=== PATIENT | male | born 1945 | race Caucasian/White ===

== ENCOUNTER 2016-10-16 17:30 | Emergency (ER) | payer MEDICARE ==
[2016-10-16] MEDS ORDERED: ONDANSETRON 4 MG/2 ML VIAL IVP STA (18:19)
[2016-10-16 19:10] LABS: Basophils # (A) 0.1 k/uL (0-0.2); Basophils % (A) 1 %; CH 32.2; CHCM 34.1; Eosinophils # (A) 0.4 k/uL (0-0.7); Eosinophils % (A) 6 %; HCT 44.2 % (39.0-53.0); HDW 2.82; HGB 14.6 gm/dL (13.0-17.5); Luc # (Auto) 0.15; Luc % (Auto) 2; Lymphocytes # (A) 1.7 k/uL (1.0-4.8); Lymphocytes % (A) 24 %; MCH 31.4 pg (25.0-35.0); MCHC 33.1 g/dL (31.0-37.0); Mean Platelet Volume 6.7; Monocytes # (A) 0.4 k/uL (0-1.0); Monocytes % (A) 6 %; Neutrophils # (A) 4.3 k/uL (1.3-7.7); Neutrophils % (A) 61 %; RBC 4.65 m/uL (4.30-5.90); RDW 13.7 % (11.5-15.5)
[2016-10-16 19:20] LABS: ALT 62 U/L (21-72); AST 31 U/L (17-59); Alkaline Phosphatase 68 U/L (38-126); Amylase <30 U/L (30-110); Anion Gap 11 mmol/L; Blood Urea Nitrogen 14 mg/dL (9-20); Calcium 9.6 mg/dL (8.4-10.2); Carbon Dioxide 25 mmol/L (22-30); Chloride 105 mmol/L (98-107); Glucose 103 mg/dL (74-99); Non-African American GFR(MDRD) >60 (>60 ml/min/1.73 sqM); Potassium 4.2 mmol/L (3.5-5.1); Sodium 141 mmol/L (137-145); Total Bilirubin 0.6 mg/dL (0.2-1.3); Total Protein 6.9 g/dL (6.3-8.2)
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
--- NOTE | 2016-10-16 19:40 | CT ---
EXAMINATION TYPE: CT brain wo con DATE OF EXAM: 10/16/2016 7:35 PM COMPARISON: NONE HISTORY: Facial numbness CT DLP: 1217.1 mGycm Automated exposure control for dose reduction was used. FINDINGS: There is mucosal thickening in the right maxillary sinus. There is mild mucosal thickening in the eth moid and sphenoid sinuses. Calvarium is intact. There is cerebral cortical atrophy. There is no mass effect or midline shift. There is no sign of intracranial hemorrhage. There is sclerosis in the masto id sinuses. IMPRESSION: Cerebral atrophy. No acute intracranial abnormality. Sinusitis. Chronic bilateral mastoiditis. There is mucosal thickening in the left middle ear cavity c onsistent with otitis media..
[2016-10-16 19:52] LABS: Partial Thromboplastin Time 23.2 sec (22.0-30.0); Prothrombin Time 9.8 sec (9.0-12.0)
[2016-10-16 20:18] VITALS: BP 135/67; PULSE 94; RESP 16; TEMP 98.2
--- NOTE | 2016-10-16 20:45 | ED ---
General Adult HPI - General Chief complaint: Neuro Symptoms/Deficit Stated complaint: Rt side numb face/arm/tongue dizzy Time Seen by Provider: 10/16/16 18:12 Source: patient Mode of arrival: wheelchair Limitations: no limitations - History of Present Illness Initial comments: This 70-year-old white male presents complaining of some left facial numbness and tingling. Onset occurred at approximately 4 PM. He states that his tongue went somewhat numb as well. He had some nausea but no vomiting. He denies any problems with speech, problems with vision, problems with coordination, or any other neurologic abnormalities. A second complaint is that of having some abdominal cramping which is been present intermittently over the past 2 weeks. He has had occasional constipation and occasional diarrhea but no blood in his stools or black tarry stools. He denies any ear pain. He apparently had your tubes [facility] approximately 10 years ago [facility] the [facility]. He denies any drainage from his years. He denies any mastoid tenderness. He has chronic sinusitis. No other complaints or modifying factors. - Related Data Home Medications Medication Instructions Recorded Confirmed Dorzolamide 2% [Trusopt 2%] 1 drop LEFT EYE HS 06/22/15 06/22/15 Latanoprost Ophth [Xalatan 0.005%] 2 drop LEFT EYE BID 06/22/15 06/22/15 Simvastatin [Zocor] 20 mg PO DAILY 06/22/15 06/22/15 Thyroid Pill 1 tab PO DAILY 06/22/15 06/22/15 prednisoLONE ACETATE [Pred Mild] 2 drops RIGHT EYE DIRECTED 06/22/15 06/22/15 Previous Rx's Medication Instructions Recorded Amoxicillin 500 mg PO Q8H #30 capsule 10/16/16 Allergies Allergy/AdvReac Type Severity Reaction Status Date / Time No Known Allergies Allergy Verified 10/16/16 17:39 Review of Systems ROS Statement: Those systems with pertinent positive or pertinent negative responses have been documented in the HPI. ROS Other: All systems not noted in ROS Statement are negative. Past Medical History Past Medical History: Hyperlipidemia, Thyroid Disorder Additional Past Medical History / Comment(s): glaucoma, History of Any Multi-Drug Resistant Organisms: None Reported Additional Past Surgical History / Comment(s): eye surgery Past Psychological History: No Psychological Hx Reported Smoking Status: Never smoker Past Alcohol Use History: None Reported Past Drug Use History: None Reported General Exam - General Exam Comments Initial Comments: GENERAL: The patient is well nourished and well hydrated. VITAL SIGNS: Heart rate, blood pressure, respiratory rate reviewed as recorded in nurse's notes. EYES: Pupils are round and reactive. Extraocular movements are intact. No conjunctival / lid redness or swelling. ENT: No external evidence of injury, swelling, or ecchymosis. Airway is patent. Throat is clear. The left ear is clear with a tube identified in the left tympanic membrane. There is associated erythema behind the tympanic membrane. The right ear is occluded with wax. There is no mastoid tenderness or swelling whatsoever. NECK: Nontender. No swelling or evidence of injury. No subcutaneous emphysema. Trachea is midline. No thyroid mass. HEART: Regular rate and rhythm. Good peripheral pulses. LUNGS/CHEST: Breath sounds clear and equal bilaterally. No rales, rhonchi, or wheezes. No ecchymosis, subcutaneous emphysema, or tenderness. ABDOMEN: Abdomen soft without tenderness. No palpable masses or organomegaly. No peritoneal signs. No abdominal wall swelling or ecchymosis. EXTREMITIES: No extremity tenderness. Normal muscle tone and function. No thoracolumbar tenderness. NEUROLOGIC: There is some subjective numbness of the left face. Cranial nerve exam reveals face is symmetrical, tongue is midline, speech is clear. SKIN: No abrasions or ecchymosis is noted. No induration or masses noted. PSYCHIATRIC: Alert and oriented. Appropriate behavior and judgment. Limitations: no limitations Course Vital Signs 10/16/16 10/16/16 17:35 20:16 Temperature 97.9 F 98.2 F Pulse Rate 87 94 Respiratory 18 16 Rate Blood Pressure 142/103 135/67 O2 Sat by Pulse 98 97 Oximetry Medical Decision Making - Medical Decision Making The patient was seen and examined. All diagnostics were reviewed. The EKG shows a normal sinus rhythm at a rate of 84. No acute ST-T wave changes are identified. The patient's ME interval is 168, QRS duration is 82, and QTC intervals 423. The computed tomography scan of the brain shows evidence of some atrophy. They also suspect a left otitis media. There is some chronic bilateral mastoid changes noted. There is a degree of sinusitis. Laboratory is unremarkable. On recheck he relates that the numbness has significantly decreased to his left face. There are no other hard signs of a CVA or TIA. The exact cause of the facial numbness is not definitively determined. It is felt as though he has a right here cerumen impaction and treatment of this as discussed. Is also felt as though he has a left otitis media and will be treated for this. His abdominal pain seems likely consistent with constipation. He has had it for approximately 2 weeks. His abdominal exam is quite benign. It is felt as though he may benefit from utilizing some MiraLAX. It is felt as though he is stable for discharge and close follow-up with his primary doctor. He understands and leaves in no distress. - Lab Data Result diagrams: 10/16/16 18:50 10/16/16 18:50 Lab Results 10/16/16 10/16/16 10/16/16 Range/Units 18:50 18:50 18:50 WBC 7.0 (3.8-10.6) k/uL RBC 4.65 (4.30-5.90) m/uL Hgb 14.6 (13.0-17.5) gm/dL Hct 44.2 (39.0-53.0) % MCV 95.0 (80.0-100.0) fL MCH 31.4 (25.0-35.0) pg MCHC 33.1 (31.0-37.0) g/dL RDW 13.7 (11.5-15.5) % Plt Count 135 L (150-450) k/uL Neutrophils % 61 % Lymphocytes % 24 % Monocytes % 6 % Eosinophils % 6 % Basophils % 1 % Neutrophils # 4.3 (1.3-7.7) k/uL Lymphocytes # 1.7 (1.0-4.8) k/uL Monocytes # 0.4 (0-1.0) k/uL Eosinophils # 0.4 (0-0.7) k/uL Basophils # 0.1 (0-0.2) k/uL PT 9.8 (9.0-12.0) sec INR 1.0 (<1.1) APTT 23.2 (22.0-30.0) sec Sodium 141 (137-145) mmol/L Potassium 4.2 (3.5-5.1) mmol/L Chloride 105 (98-107) mmol/L Carbon Dioxide 25 (22-30) mmol/L Anion Gap 11 mmol/L BUN 14 (9-20) mg/dL Creatinine 0.97 (0.66-1.25) mg/dL Est GFR (MDRD) Af Amer >60 (>60 ml/min/1.73 sqM) Est GFR (MDRD) Non-Af >60 (>60 ml/min/1.73 sqM) Glucose 103 H (74-99) mg/dL Calcium 9.6 (8.4-10.2) mg/dL Total Bilirubin 0.6 (0.2-1.3) mg/dL AST 31 (17-59) U/L ALT 62 (21-72) U/L Alkaline Phosphatase 68 (38-126) U/L Total Protein 6.9 (6.3-8.2) g/dL Albumin 4.3 (3.5-5.0) g/dL Amylase <30 L (30-110) U/L Lipase 79 (23-300) U/L Disposition Clinical Impression: Left facial numbness, Left otitis media, Sinusitis, Hypertension, Abdominal pain, Constipation Disposition: HOME SELF-CARE Condition: Good Instructions: Abdominal Pain (ED), Constipation (ED), High Fiber Diet (ED), Otitis Media (ED), Sinusitis (ED), Hypertension (ED), Paresthesia (ED) Additional Instructions: Please use MiraLAX as needed for constipation. Prescriptions: Amoxicillin 500 mg PO Q8H #30 capsule Referrals: Quincy Fraga MD [Primary Care Provider] - 1-2 days Time of Disposition: 20:45
== END 2016-10-16 21:00 | disposition home or self-care (01) ==
LOC: EC 17:30
DX: R20.0 Anesthesia of skin (principal); H66.92 Otitis media, unspecified, left ear; J32.9 Chronic sinusitis, unspecified; I10 Essential (primary) hypertension; K59.00 Constipation, unspecified; H61.21 Impacted cerumen, right ear; E07.9 Disorder of thyroid, unspecified; E78.5 Hyperlipidemia, unspecified; H40.9 Unspecified glaucoma; Z79.899 Other long term (current) drug therapy
CPT/HCPCS: 36415; 93005; 80053; 82150; 83690; 85025; 85610; 85730; 74022; 70450; 99284; 96374; J2405

== ENCOUNTER 2016-11-14 07:26 | Day surgery (SDC) | payer MEDICARE, OTHER ==
[2016-11-12 16:08] VITALS: BMI 39.1
[~2016-11-14 07:26] MED LIST: MOXIFLOXACIN HCL 0.5% DROPS 3 ML BTL OP ONE; TETRACAINE 0.5% OPHTH (PF) DROPS 4 ML BTL OP ONE; TIMOLOL 0.5% OPHTH SOLN (PF) 0.2 ML DROPERETTE OP ONE
[2016-11-14 07:47] VITALS: RESP 16; TEMP 97.7
[2016-11-14] MEDS ORDERED: LIDOCAINE 1% 20 ML VIAL (10MG/ML) FOR IV START INTRADERMA ONE (07:57)
[2016-11-14] MEDS ORDERED: LACTATED RINGERS 1,000 ML IV ONE (07:58)
[2016-11-14] MEDS ORDERED: fentaNYL (PF) 50 MCG/ML 2 ML AMP ONE (09:17)
[2016-11-14] MEDS ORDERED: MIDAZOLAM 2 MG/2 ML VIAL ONE (09:17)
[2016-11-14] MEDS ORDERED: BUPIVACAIN-EPI 0.5%-1:200,000 30 ML VIAL SQ ONE ×2 (09:33)
[2016-11-14] MEDS ORDERED: BALANCED SALT IRRIG SOLN COMB2 15 ML IRRIG.SOLN IRRIGATION ONE (09:33)
[2016-11-14] MEDS ORDERED: FLUORESCEIN STRIPS 1 MG STRIP RIGHT EYE ONE (09:52)
[2016-11-14] MEDS ORDERED: ATROPINE SULFATE 0.4 MG/ML 1 ML VIAL SQ ONE (09:53)
--- NOTE | 2016-11-14 09:58 | P.OP ---
Date of Procedure: 11/14/16 Preoperative Diagnosis: uncontrolled glaucoma with cystic bleb. OD Postoperative Diagnosis: same Procedure(s) Performed: bleb needling OD Implants: none Anesthesia: MAC Surgeon: Rainer Celaya Estimated Blood Loss (ml): 5 Pathology: none sent Condition: stable Disposition: same day Indications for Procedure: increased IOP in advanced glaucoma Operative Findings: No complications IOP fell from 24 mm Hg to 7.1 and less after the procedure
[2016-11-14 10:25] VITALS: BP 146/73; PULSE 82
--- NOTE | 2016-11-15 07:58 | OP ---
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 OPERATION: Bleb needling of the right eye. ANESTHESIA: Topical. ESTIMATED BLOOD LOSS: None. SPECIMENS REMOVED: None. COMPLICATIONS: OPERATIVE FINDINGS: NARRATIVE: After obtaining the appropriate consent, the patient was brought to the operating room. There, he was placed under cardiac monitoring, prepped and draped in the usual sterile manner. He was approached from the 12 o'clock position and identification of the encysted bleb was easily noted at about 10 o'clock at the limbus on his eye. Using a 27-gauge hypodermic needle, a 0.5% Marcaine with epinephrine was injected into the subconjunctival space to inflate the tissue and provide for increased comfort. The needle was slowly advanced under the tissue taking care so as not to breech or create any additional holes in the conjunctiva itself. This created a large hydraulic space that went from approximately 8 o'clock on the patient's eye to about 3 o'clock or so. After the anesthetic was placed attempts to break down the fibrous bands, which were noted, was accomplished first using a cyclodialysis spatula with the tip easily identified within the space of the encysted bleb. However, the intraocular pressure was identified as not adequately falling so using the 27-gauge hypodermic needle this was passed back through the space lysing any additional fibrous bands in a horizontal fashion to that which was done with a cyclodialysis spatula; however, extra effort was applied at the edge of the encysted bleb. The preoperative intraocular pressure by Schi?tz tonometry was noted to be approximately 24.5 mmHg and at the end of the case, once the eye began to soften after lysing the fibrous tissue, the pressure had dropped to approximately 7 mmHg using a Schi?tz tonometer and continued to fall while in the tonometer was left in place. Because the conjunctival wound was small after checking the eye for any leak using fluorescein, there was none noted and therefore, there was no suture required to close the opening in the conjunctival tissue. At the end of the case the patient's eye was dilated with 1% atropine and he was given 2 drops of Vigamox. He was lightly patched and shielded in the usual manner. There were no complications from the procedure. He tolerated the procedure well and was returned to outpatient recovery in good condition.
== END 2016-11-14 10:38 | disposition home or self-care (01) ==
LOC: OR 07:26
PROVIDERS: ATTEND Ophthalmology
DX: H40.31 Glaucoma secondary to eye trauma, right eye (principal); Z88.2 Allergy status to sulfonamides; Z79.899 Other long term (current) drug therapy
CPT/HCPCS: 66999; J2250; J0461; J3010; 99152; 99153

== ENCOUNTER 2017-05-15 20:19 | Emergency (ER) | payer MEDICARE ==
[2017-05-15 20:24] VITALS: BP 146/80; PULSE 87; RESP 18; TEMP 98.1
--- NOTE | 2017-05-15 20:48 | ED ---
Wound/Laceration HPI - General Chief Complaint: Wound/Laceration Stated Complaint: left middle finger lac Time Seen by Provider: 05/15/17 20:26 Source: patient, RN notes reviewed Mode of arrival: ambulatory Limitations: no limitations - History of Present Illness Initial Comments: 71-year-old male presents emergency Department chief complaint of laceration to his left hand middle finger. Patient states she stepped on a plastic lawn chair states that it broke pinching finger. He states his tetanus is up-to- date last 5 years. States that his full range of motion no paresthesias. - Related Data Home Medications Medication Instructions Recorded Confirmed Simvastatin [Zocor] 20 mg PO HS 06/22/15 11/14/16 Cholecalciferol [Vitamin D3] 1,000 unit PO DAILY 11/12/16 11/14/16 Levothyroxine (Unknown Dose) 1 tab PO DAILY 11/12/16 11/14/16 Pilocarpine 2% Ophth Soln [Isopto 1 drops BOTH EYES TID 11/12/16 11/14/16 Carpine 2%] Travoprost [Travatan Z 0.004%] 1 drop LEFT EYE HS 11/12/16 11/14/16 Allergies Allergy/AdvReac Type Severity Reaction Status Date / Time No Known Allergies Allergy Verified 05/15/17 20:24 Review of Systems ROS Statement: Those systems with pertinent positive or pertinent negative responses have been documented in the HPI. ROS Other: All systems not noted in ROS Statement are negative. Past Medical History Past Medical History: GERD/Reflux, Hyperlipidemia, Thyroid Disorder Additional Past Medical History / Comment(s): glaucoma. History of Any Multi-Drug Resistant Organisms: None Reported Additional Past Surgical History / Comment(s): RIGHT EYE SURGERY FOR GLAUCOMA, NASAL POLYP SURGERY. Past Anesthesia/Blood Transfusion Reactions: No Reported Reaction Past Psychological History: No Psychological Hx Reported Smoking Status: Former smoker Past Alcohol Use History: None Reported Past Drug Use History: None Reported - Past Family History Father Family Medical History: Cancer Additional Family Medical History / Comment(s): THROAT CANCER General Exam Limitations: no limitations General appearance: alert, in no apparent distress Respiratory exam: Present: normal lung sounds bilaterally. Absent: respiratory distress, wheezes, rales, rhonchi, stridor Cardiovascular Exam: Present: regular rate, normal rhythm, normal heart sounds. Absent: systolic murmur, diastolic murmur, rubs, gallop, clicks Extremities exam: Present: other (Left hand third digit there is a 3 cm laceration across the middle phalanx region patient has full range of motion no tendon involvement neurovascular intact) Course Vital Signs 05/15/17 20:21 Temperature 98.1 F Pulse Rate 87 Respiratory 18 Rate Blood Pressure 146/80 O2 Sat by Pulse 99 Oximetry Procedures - Laceration Laceration #1 Indication: laceration Site: hand (Left hand third digit) Size (cm): 3 Description: linear Depth: simple, single layer Anesthetic Used: lidocaine 1%, without epi Anesthesia Technique: local infiltration Amount (mls): 3 Pre-repair: wound explored, irrigated extensively, deep structures intact Type of Sutures: nylon Size of Sutures: 4-0 Number of Sutures: 8 Technique: simple, interrupted Patient Tolerated Procedure: well, no complications Additional Comments: Bacitracin applied Medical Decision Making - Medical Decision Making 71-year-old male present for finger laceration. This was closed using sutures patient tolerated well no comp patient no tendon involvement. Patient's tetanus is up-to-date he'll return in 10 days for suture removal and wound care was discussed return parameters were discussed Disposition Clinical Impression: Finger laceration Disposition: HOME SELF-CARE Condition: Stable Instructions: Care For Your Stitches (ED), Finger Laceration (ED) Additional Instructions: Have sutures removed in 10 days.Please return to the Emergency Department if symptoms worsen or any other concerns. Referrals: Jason Fraga MD [Primary Care Provider] - 1-2 days Time of Disposition: 20:48
== END 2017-05-15 20:56 | disposition home or self-care (01) ==
LOC: EC 20:19
DX: S61.213A Laceration without foreign body of left middle finger without damage to nail, initial encounter (principal); E78.5 Hyperlipidemia, unspecified; E07.9 Disorder of thyroid, unspecified; Z87.891 Personal history of nicotine dependence; Z79.899 Other long term (current) drug therapy; Z86.69 Personal history of other diseases of the nervous system and sense organs; W23.0XXA Caught, crushed, jammed, or pinched between moving objects, initial encounter; Y93.89 Activity, other specified
CPT/HCPCS: 12002; 99282

== ENCOUNTER 2017-08-08 23:29 | Emergency (ER) | payer MEDICARE ==
--- NOTE | 2017-08-08 23:51 | ED ---
General Adult HPI - General Source: patient, RN notes reviewed Mode of arrival: ambulatory Limitations: no limitations <Tomasa Pepper - Last Filed: 08/08/17 23:50> <Manjeet Barreto - Last Filed: 08/09/17 04:40> - General Chief complaint: Psychiatric Symptoms Stated complaint: Petition Time Seen by Provider: 08/08/17 23:40 - History of Present Illness Initial comments: 71 yo male presents on petition. Patient has no complaints and denies any suicidal or homicidal thoughts and he states he has no idea why he is here. The petition is reviewed that does show some concern for the patient feeling as if he is being poisoned and secluding himself. He denies any concerns at this time. He states that he feels fine. Patient denies any recent fever, chills, shortness of breath, chest pain, back pain, abdominal pain, nausea vomiting, numbness or tingling, dysuria or hematuria, constipation or diarrhea, headaches or visual changes, or any other current symptoms. (Tomasa Pepper) - Related Data Home Medications Medication Instructions Recorded Confirmed Simvastatin [Zocor] 20 mg PO HS 06/22/15 11/14/16 Cholecalciferol [Vitamin D3] 1,000 unit PO DAILY 11/12/16 11/14/16 Levothyroxine (Unknown Dose) 1 tab PO DAILY 11/12/16 08/09/17 Pilocarpine 2% Ophth Soln [Isopto 1 drops BOTH EYES TID 11/12/16 11/14/16 Carpine 2%] Travoprost [Travatan Z 0.004%] 1 drop LEFT EYE HS 11/12/16 11/14/16 Cholesterol Med Unknown 1 tab PO DAILY 08/09/17 08/09/17 Allergies Allergy/AdvReac Type Severity Reaction Status Date / Time No Known Allergies Allergy Verified 08/08/17 23:46 Review of Systems ROS Other: All systems not noted in ROS Statement are negative. <Tomasa Pepper - Last Filed: 08/08/17 23:50> ROS Other: All systems not noted in ROS Statement are negative. <Manjeet Barreto - Last Filed: 08/09/17 04:40> ROS Statement: Those systems with pertinent positive or pertinent negative responses have been documented in the HPI. Past Medical History Past Medical History: GERD/Reflux, Hyperlipidemia, Thyroid Disorder Additional Past Medical History / Comment(s): glaucoma. History of Any Multi-Drug Resistant Organisms: None Reported Additional Past Surgical History / Comment(s): RIGHT EYE SURGERY FOR GLAUCOMA, NASAL POLYP SURGERY. Past Anesthesia/Blood Transfusion Reactions: No Reported Reaction Past Psychological History: Anxiety Smoking Status: Former smoker Past Alcohol Use History: None Reported Past Drug Use History: None Reported - Past Family History Father Family Medical History: Cancer Additional Family Medical History / Comment(s): THROAT CANCER <Tomasa Pepper - Last Filed: 08/08/17 23:50> General Exam Limitations: no limitations General appearance: alert, in no apparent distress ENT exam: Present: normal exam, mucous membranes moist Neck exam: Present: normal inspection. Absent: tenderness, meningismus, lymphadenopathy Respiratory exam: Present: normal lung sounds bilaterally. Absent: respiratory distress, wheezes, rales, rhonchi, stridor Cardiovascular Exam: Present: regular rate, normal rhythm, normal heart sounds. Absent: systolic murmur, diastolic murmur, rubs, gallop, clicks Neurological exam: Present: alert, oriented X3 Psychiatric exam: Absent: homicidal ideation, suicidal ideation Skin exam: Present: warm, dry, intact, normal color. Absent: rash <Tomasa Pepper - Last Filed: 08/08/17 23:50> Course <Tomasa Pepper - Last Filed: 08/08/17 23:50> <Manjeet Barreto - Last Filed: 08/09/17 04:40> Vital Signs 08/08/17 08/09/17 08/09/17 23:32 00:38 01:03 Temperature 98.5 F Pulse Rate 117 H 100 102 H Respiratory 20 18 20 Rate Blood Pressure 209/107 202/114 167/84 O2 Sat by Pulse 98 100 96 Oximetry - Reevaluation(s) Reevaluation #1: 08/09/17 04:39 medically clear for psychiatric eval (Manjeet Barreto) Medical Decision Making <Tomasa Pepper - Last Filed: 08/08/17 23:50> <Manjeet Barreto - Last Filed: 08/09/17 04:40> - Medical Decision Making 71-year-old male presents for petition. This time he does not appear to be suffering acute medical emergencies. This time he is cleared to be evaluated by psychiatry. (Tomasa Pepper) 71 male seen and evaluated by psychiatry, not homicidal or suicidal, ok for discharge home (Manjeet Barreto) - Lab Data Lab Results 08/08/17 Range/Units 23:59 Urine Opiates Screen Not Detected (NotDetected) Ur Oxycodone Screen Not Detected (NotDetected) Urine Methadone Screen Not Detected (NotDetected) Ur Propoxyphene Screen Not Detected (NotDetected) Ur Barbiturates Screen Not Detected (NotDetected) U Tricyclic Antidepress Not Detected (NotDetected) Ur Phencyclidine Scrn Not Detected (NotDetected) Ur Amphetamines Screen Not Detected (NotDetected) U Methamphetamines Scrn Not Detected (NotDetected) U Benzodiazepines Scrn Not Detected (NotDetected) Urine Cocaine Screen Not Detected (NotDetected) U Marijuana (THC) Screen Not Detected (NotDetected) Disposition <Tomasa Pepper - Last Filed: 08/08/17 23:50> <Manjeet Barreto - Last Filed: 08/09/17 04:40> Clinical Impression: Alcohol abuse Disposition: HOME SELF-CARE Condition: Fair Instructions: Abuse of Alcohol (ED) Referrals: Jason Fraga MD [Primary Care Provider] - 1-2 days
[2017-08-09] MEDS ORDERED: cloNIDine HCL 0.1 MG TAB PO STA (00:38)
[2017-08-09 04:56] VITALS: BP 196/98; PULSE 97; RESP 22; TEMP 97.9
== END 2017-08-09 04:56 | disposition home or self-care (01) ==
LOC: EC 23:29
DX: F10.10 Alcohol abuse, uncomplicated (principal); E78.5 Hyperlipidemia, unspecified; E07.9 Disorder of thyroid, unspecified; H40.9 Unspecified glaucoma; Z79.899 Other long term (current) drug therapy; Z87.891 Personal history of nicotine dependence
CPT/HCPCS: 80306; 82075; 99284

== ENCOUNTER 2017-08-09 09:23 | Inpatient (IN) | payer MEDICARE ==
--- NOTE | 2017-08-09 12:16 | ED ---
Psych HPI - General Chief Complaint: Psychiatric Symptoms Stated Complaint: Mental Health Time Seen by Provider: 08/09/17 09:27 Source: patient, RN notes reviewed Mode of arrival: ambulatory Limitations: no limitations - History of Present Illness Initial Comments: 71-year-old male present emergency department for psychiatric evaluation. Patient was on a corner petition pickup order. Patient was evaluated last night by medical staff, psychiatric services and felt that he was not suicidal or homicidal. Patient was discharged. Patient states that he is not suicidal he is not homicidal that he is not really sure what's going on. Patient states that he has no hallucinations does not hear any voices. Denies any illicit drug use. He states he occasionally uses alcohol he does have guns in the house hold which are locked up. 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 - Related Data Home Medications Medication Instructions Recorded Confirmed Simvastatin [Zocor] 20 mg PO HS 06/22/15 08/09/17 Cholecalciferol [Vitamin D3] 1,000 unit PO DAILY 11/12/16 08/09/17 Latanoprost [Xalatan 0.005%] 1 drop LEFT EYE HS 08/09/17 08/09/17 Levothyroxine Sodium [Synthroid] 125 mcg PO DAILY 08/09/17 08/09/17 prednisoLONE ACETATE 1% OPHTH 1 drops RIGHT EYE BID 08/09/17 08/09/17 [Pred Forte 1%] Allergies Allergy/AdvReac Type Severity Reaction Status Date / Time No Known Allergies Allergy Verified 08/09/17 10:02 Review of Systems ROS Statement: Those systems with pertinent positive or pertinent negative responses have been documented in the HPI. ROS Other: All systems not noted in ROS Statement are negative. Past Medical History Past Medical History: GERD/Reflux, Hyperlipidemia, Thyroid Disorder Additional Past Medical History / Comment(s): glaucoma. History of Any Multi-Drug Resistant Organisms: None Reported Additional Past Surgical History / Comment(s): RIGHT EYE SURGERY FOR GLAUCOMA, NASAL POLYP SURGERY. Past Anesthesia/Blood Transfusion Reactions: No Reported Reaction Past Psychological History: Anxiety Smoking Status: Former smoker Past Alcohol Use History: None Reported Past Drug Use History: None Reported - Past Family History Father Family Medical History: Cancer Additional Family Medical History / Comment(s): THROAT CANCER General Exam Limitations: no limitations General appearance: alert, in no apparent distress Head exam: Present: atraumatic, normocephalic, normal inspection Eye exam: Present: normal appearance, PERRL, EOMI. Absent: scleral icterus, conjunctival injection, periorbital swelling ENT exam: Present: normal exam, normal oropharynx, mucous membranes moist Neck exam: Present: normal inspection, full ROM. Absent: tenderness, meningismus, lymphadenopathy Respiratory exam: Present: normal lung sounds bilaterally. Absent: respiratory distress, wheezes, rales, rhonchi, stridor Cardiovascular Exam: Present: regular rate, normal rhythm, normal heart sounds. Absent: systolic murmur, diastolic murmur, rubs, gallop, clicks Psychiatric exam: Present: normal affect, normal mood Course Vital Signs 08/09/17 10:02 Temperature 97.4 F L Pulse Rate 94 Respiratory 18 Rate Blood Pressure 165/97 O2 Sat by Pulse 97 Oximetry Medical Decision Making - Medical Decision Making 71-year-old male present emergency department for psychiatric evaluation. Patient was evaluated last night and discharged. Patient was brought back for second evaluation. Patient did sign in for consent for psychiatric services. Disposition Clinical Impression: PTSD (post-traumatic stress disorder) Disposition: ADMITTED IP TO THIS HOSP Condition: Stable Referrals: Jason Fraga MD [Primary Care Provider] - 1-2 days
[2017-08-09] MEDS ORDERED: MAGNESIUM HYDROXIDE 2,400 MG/10 ML CUP PO PRN (12:41)
[2017-08-09] MEDS ORDERED: MAG HYDROX/AL HYDROX/SIMETH 30 ML CUP PO PRN (12:41)
[2017-08-09] MEDS ORDERED: cloNIDine HCL 0.1 MG TAB PO PRN (15:49)
--- NOTE | 2017-08-09 16:59 | P.HPMEDMHU ---
History of Present Illness H&P Date: 08/09/17 Chief Complaint: delusions and psychosis This is a 71-year-old male that was petitioned by his daughter because he was having delusions accusing family of things. Patient is not suicidal nor homicidal. Patient does not realize he has any problems. And does not know why he is here. He says he is never been admitted here [facility]. According to the petitioned patient had not been taking his medications Review of Systems All systems: negative Constitutional: Denies anorexia Ears, nose, mouth and throat: Denies headache, Denies sore throat Cardiovascular: Reports as per HPI, Denies chest pain, Denies dyspnea on exertion Respiratory: Denies dyspnea, Denies snoring Gastrointestinal: Denies nausea, Denies vomiting Genitourinary: Denies dysuria Musculoskeletal: Denies myalgias Integumentary: Denies pruritus, Denies rash Neurological: Denies numbness, Denies weakness Psychiatric: Denies anxiety, Denies depression Endocrine: Denies fatigue, Denies weight change Hematologic/Lymphatic: Denies easy bleeding, Denies lymphadenopathy Allergic/Immunologic: Denies anaphylaxis Past Medical History Past Medical History: GERD/Reflux, Hyperlipidemia, Thyroid Disorder Additional Past Medical History / Comment(s): glaucoma., History of elevated blood pressure History of Any Multi-Drug Resistant Organisms: None Reported Additional Past Surgical History / Comment(s): RIGHT EYE SURGERY FOR GLAUCOMA, NASAL POLYP SURGERY. Past Anesthesia/Blood Transfusion Reactions: No Reported Reaction Past Psychological History: Anxiety Smoking Status: Former smoker Past Alcohol Use History: None Reported Past Drug Use History: None Reported - Past Family History Father Family Medical History: Cancer Additional Family Medical History / Comment(s): THROAT CANCER Medications and Allergies Home Medications Medication Instructions Recorded Confirmed Type Simvastatin [Zocor] 20 mg PO HS 06/22/15 08/09/17 History Cholecalciferol [Vitamin D3] 1,000 unit PO DAILY 11/12/16 08/09/17 History Latanoprost [Xalatan 0.005%] 1 drop LEFT EYE HS 08/09/17 08/09/17 History Levothyroxine Sodium [Synthroid] 125 mcg PO DAILY 08/09/17 08/09/17 History prednisoLONE ACETATE 1% OPHTH 1 drops RIGHT EYE BID 08/09/17 08/09/17 History [Pred Forte 1%] Allergies Allergy/AdvReac Type Severity Reaction Status Date / Time No Known Allergies Allergy Verified 08/09/17 10:02 Physical Exam Vitals: Vital Signs Temp Pulse Pulse Pulse Resp BP BP 08/09/17 12:50 97.8 F 99 102 H 20 166/100 08/09/17 12:46 97.8 F 85 18 185/94 08/09/17 10:02 97.4 F L 94 18 165/97 BP Pulse Ox 08/09/17 12:50 170/101 98 08/09/17 12:46 95 08/09/17 10:02 97 Intake and Output 08/09/17 08/09/17 08/09/17 06:59 14:59 22:59 Other: Weight 125.9 kg Patient Weight 08/10/17 06:59 Weight 125.9 kg Cranial Nerve Examination - Cranial Nerves Cranial Nerve II- Optic: Intact Cranial Nerve III- Oculomotor: Intact Cranial Nerve IV- Trochlear: Intact Cranial Nerve V- Trigeminal: Intact Cranial Nerve - Abducens: Intact Cranial Nerve VII- Facial: Intact Cranial Nerve VIII- Auditory: Intact Cranial Nerve IX- Glossopharyngeal: Intact Cranial Nerve X- Vagus: Intact Cranial Nerve XI- Accessory: Intact Cranial Nerve XII- Hypoglossal: Intact Assessment and Plan (1) Delusion Narrative/Plan: per psychiatry Current Visit: Yes Status: Acute Code(s): F22 - DELUSIONAL DISORDERS SNOMED Code(s): 2379077 (2) Elevated blood pressure reading Narrative/Plan: will monitor, not sure if readingnow issecondary to being admitted will treat with meds if contunues to be high Current Visit: Yes Status: Acute Code(s): R03.0 - ELEVATED BLOOD-PRESSURE READING, W/O DIAGNOSIS OF HTN SNOMED Code(s): 97808167 (3) PTSD (post-traumatic stress disorder) Current Visit: Yes Status: Acute Code(s): F43.10 - POST-TRAUMATIC STRESS DISORDER, UNSPECIFIED SNOMED Code(s): 68979898
[2017-08-09] MEDS: LORazepam 0.5 MG TAB PO PRN (17:00)
[2017-08-09] MEDS: ATORVASTATIN 10 MG TAB PO SCH (20:20)
[2017-08-09] MEDS: prednisoLONE ACETATE 1% OPHTH DROPS 1 ML BTL RIGHT EYE SCH (20:20)
[2017-08-09] MEDS: LATANOPROST 0.005% OPHTH DROPS 2.5 ML BTL LEFT EYE SCH (20:21)
[2017-08-10] MEDS: LEVOTHYROXINE 125 MCG TAB PO SCH (05:59)
[2017-08-10 08:20] LABS: Basophils # (A) 0.1 k/uL (0-0.2); Basophils % (A) 1 %; CH 32.3; CHCM 32.1; Eosinophils # (A) 0.4 k/uL (0-0.7); Eosinophils % (A) 4 %; HCT 53.3 % (39.0-53.0); HGB 16.7 gm/dL (13.0-17.5); Luc # (Auto) 0.09; Luc % (Auto) 1; Lymphocytes # (A) 2.4 k/uL (1.0-4.8); Lymphocytes % (A) 20 %; MCH 31.8 pg (25.0-35.0); MCHC 31.3 g/dL (31.0-37.0); MCV 101.3 fL (80.0-100.0); Macrocytosis Slight; Mean Platelet Volume 7.3; Monocytes # (A) 0.6 k/uL (0-1.0); Monocytes % (A) 5 %; Neutrophils # (A) 8.3 k/uL (1.3-7.7); Neutrophils % (A) 70 %; RBC 5.26 m/uL (4.30-5.90); RDW 14.1 % (11.5-15.5); WBC 11.9 k/uL (3.8-10.6); WBC (Perox) 11.89
[2017-08-10] MEDS: CHOLECALCIFEROL 1,000 UNIT TAB PO SCH (08:30)
[2017-08-10] MEDS: prednisoLONE ACETATE 1% OPHTH DROPS 1 ML BTL RIGHT EYE SCH ×2 (08:30→20:11)
[2017-08-10 08:34] LABS: ALT 56 U/L (21-72); AST 45 U/L (17-59); Alkaline Phosphatase 64 U/L (38-126); Anion Gap 9 mmol/L; Blood Urea Nitrogen 10 mg/dL (9-20); Carbon Dioxide 27 mmol/L (22-30); Chloride 106 mmol/L (98-107); Cholesterol 182 mg/dL (<200); Glucose 129 mg/dL (74-99); HDL Cholesterol 57 mg/dL (40-60); Non-African American GFR(MDRD) >60 (>60 ml/min/1.73 sqM); Potassium 4.1 mmol/L (3.5-5.1); Sodium 142 mmol/L (137-145); Total Bilirubin 0.7 mg/dL (0.2-1.3); Total Protein 7.2 g/dL (6.3-8.2)
--- NOTE | 2017-08-10 13:01 | P.HP ---
Psychiatric H&P - . H&P Date: 08/10/17 History & Physical: Allergies Allergy/AdvReac Type Severity Reaction Status Date / Time No Known Allergies Allergy Verified 08/09/17 10:02 Vital Signs Temp 98.1 F 08/10/17 06:09 Pulse 113 H 08/10/17 08:30 Resp 18 08/10/17 08:30 BP 166/84 08/10/17 08:30 Pulse Ox 98 08/09/17 12:50 Intake & Output 08/09/17 08/10/17 08/10/17 18:59 06:59 18:59 Weight 125.9 kg Laboratory Last Values WBC 11.9 k/uL (3.8-10.6) H 08/10/17 07:54 RBC 5.26 m/uL (4.30-5.90) 08/10/17 07:54 Hgb 16.7 gm/dL (13.0-17.5) 08/10/17 07:54 Hct 53.3 % (39.0-53.0) H 08/10/17 07:54 MCV 101.3 fL (80.0-100.0) H 08/10/17 07:54 MCH 31.8 pg (25.0-35.0) 08/10/17 07:54 MCHC 31.3 g/dL (31.0-37.0) 08/10/17 07:54 RDW 14.1 % (11.5-15.5) 08/10/17 07:54 Plt Count 198 k/uL (150-450) 08/10/17 07:54 Neutrophils % 70 % 08/10/17 07:54 Lymphocytes % 20 % 08/10/17 07:54 Monocytes % 5 % 08/10/17 07:54 Eosinophils % 4 % 08/10/17 07:54 Basophils % 1 % 08/10/17 07:54 Neutrophils # 8.3 k/uL (1.3-7.7) H 08/10/17 07:54 Lymphocytes # 2.4 k/uL (1.0-4.8) 08/10/17 07:54 Monocytes # 0.6 k/uL (0-1.0) 08/10/17 07:54 Eosinophils # 0.4 k/uL (0-0.7) 08/10/17 07:54 Basophils # 0.1 k/uL (0-0.2) 08/10/17 07:54 Macrocytosis Slight 08/10/17 07:54 Sodium 142 mmol/L (137-145) 08/10/17 07:54 Potassium 4.1 mmol/L (3.5-5.1) 08/10/17 07:54 Chloride 106 mmol/L (98-107) 08/10/17 07:54 Carbon Dioxide 27 mmol/L (22-30) 08/10/17 07:54 Anion Gap 9 mmol/L 08/10/17 07:54 BUN 10 mg/dL (9-20) 08/10/17 07:54 Creatinine 0.97 mg/dL (0.66-1.25) 08/10/17 07:54 Est GFR (MDRD) Af Amer >60 (>60 ml/min/1.73 sqM) 08/10/17 07:54 Est GFR (MDRD) Non-Af >60 (>60 ml/min/1.73 sqM) 08/10/17 07:54 Glucose 129 mg/dL (74-99) H 08/10/17 07:54 Calcium 10.0 mg/dL (8.4-10.2) 08/10/17 07:54 Total Bilirubin 0.7 mg/dL (0.2-1.3) 08/10/17 07:54 AST 45 U/L (17-59) 08/10/17 07:54 ALT 56 U/L (21-72) 08/10/17 07:54 Alkaline Phosphatase 64 U/L (38-126) 08/10/17 07:54 Total Protein 7.2 g/dL (6.3-8.2) 08/10/17 07:54 Albumin 4.4 g/dL (3.5-5.0) 08/10/17 07:54 Triglycerides 198 mg/dL (<150) H 08/10/17 07:54 Cholesterol 182 mg/dL (<200) 08/10/17 07:54 LDL Cholesterol, Calc 85 mg/dL (0-99) 08/10/17 07:54 HDL Cholesterol 57 mg/dL (40-60) 08/10/17 07:54 TSH 4.500 mIU/L (0.465-4.680) 08/10/17 07:54 08/10/17 12:50 IDENTIFYING DATA: 71-year-old male patient HPI: patient admitted to the inpatient psychiatric unit [facility] on a voluntary basis. Patient states that there was a court order and to please them came and brought him to the hospital. He says he was evaluated and released and then they brought him back and. He states his daughter signed a petition when he was released. He is unaware of what the concern was but then later in the assessment states that his daughter accused him of saying things related to his trying to get rid of him. He states that he does not think that his was trying to get rid of him.he doesn't know why he had to be admitted. He states that his mood has been good and he denies any hallucinations. He denies any paranoid thoughts. He denies any recent or current thoughts of harm to self or others. He again states he is unaware of why they had a court order. He says he been eating and sleeping okay. He denies any significant agitation. He denies any mood swings. Does admit to history of PTSD but just once in a while he has nightmares and flashbacks now. PAST PSYCHIATRIC HISTORY: he was admitted to the [facility] 1994 with "nervous breakdown." He was released after 20 days. He says he was diagnosed with schizoaffective disorder, relays that they gave him that classification related to being approved for SSI. He relates that he was tired at the time. He denies any history of suicide attempts. He denies any history of hallucinations. He was on Risperdal for a lot of years which did not bother him. I do not a list of most recent medications which include Zoloft and Ativan , he relates he hasn't been taking mental health medications for 10 years. He relates that he really doesn't need anything in terms of medications. PMH:, glaucoma right eye, hypercholesterolemia, hypothyroidism ALLERGIES: no known ALLERGIES MEDICATIONS: home medication list include sertraline, Ativan, prazosin, thyroid , Acetazolamide CHEMICAL DEPENDENCY HISTORY: relates that he drinks beer about 3 cans per day, relays it's never been a big problem for him. FAMILY PSYCHIATRIC HISTORY: mother with history of schizophrenia, was institutionalized in the late 60s. FAMILY CHEMICAL DEPENDENCY HISTORY: not known at this time SOCIAL HISTORY: currently lives with his , relays that she might have left him by now. He relays that she has become better and hateful towards him. Grandson also lives with them and 7-month-old foster child. His 4 children 11 grandkids. He does state that he was in [place] for approximately one year, was in the [employer]. He is on disability. He states that he also gets correction from a [employer]. MENTAL STATUS EXAM: he is alert and cooperative with the session. His speech is fluent, loud, not pressured. His thought processes are organized. His mood is described as "good." He denies any thoughts of harm to self or others. He denies any current hallucinations. He denies any current paranoid thoughts. He does make reference that his might have left him by now. Cognitively appears very grossly intact. His insight has some limitations, judgment shows evidence of recent impairment. STRENGTHS/WEAKNESSES: strengthssome support systems; weaknessescoping skills, not recently and treatment INTELLECTUAL FUNCTIONING: average IMPRESSIONS: schizoaffective disorder by history; rule out alcohol use disorder ; PTSD PLAN: patient is admitted to the inpatient psychiatric unit [facility] on a voluntary basis. He has signed adult formal voluntary form. He was placed on SP 15 minute precautions. Baseline laboratory workup were done the patient and medical consultation will be ordered. I discussed initiating Abilify which can help with mood stability, treatment/prevention of any psychosis symptoms as well as perhaps with PTSD symptoms and he refuses psychotropic medication at this point time, relays that he really doesn't need anything.we'll continue to discuss psychotropic medication with the patient. We will look into family supports. We'll monitor for any psychosis symptoms monitor for any agitation. Estimated length of stay is 5-7 days. Prognosis is guarded.
--- NOTE | 2017-08-10 13:46 | P.PN ---
Progress Note - Text Progress Note Date: 08/10/17 Was asked to evaluate patient for elevated blood pressure and tachycardia. From history available to nursing patient drinks 12 pack daily. So elevated blood pressure can be secondary to alcohol withdrawals. I will sart CIWA scale with ativan and montior. gen:alert and oriented lungs:clear to auscultation heart:s1s2 abdomen:soft and depressible,non tender ext:no edema
[2017-08-10] MEDS: ACETAMINOPHEN TAB 325 MG TAB PO PRN (16:17)
[2017-08-10] MEDS: LATANOPROST 0.005% OPHTH DROPS 2.5 ML BTL LEFT EYE SCH (20:12)
[2017-08-10] MEDS: ATORVASTATIN 10 MG TAB PO SCH (21:38)
[2017-08-11] MEDS: LEVOTHYROXINE 125 MCG TAB PO SCH (06:34)
[2017-08-11] MEDS: LORazepam 0.5 MG TAB PO PRN (06:41)
[2017-08-11] MEDS ORDERED: LORazepam 1 MG TAB PO PRN ×2 (08:13)
[2017-08-11] MEDS: CHOLECALCIFEROL 1,000 UNIT TAB PO SCH (08:24)
[2017-08-11] MEDS: prednisoLONE ACETATE 1% OPHTH DROPS 1 ML BTL RIGHT EYE SCH ×2 (08:25→20:57)
--- NOTE | 2017-08-11 16:18 | P.PN ---
Progress Note - Text Progress Note Date: 08/11/17 Interval history: Patient seen in [facility] [place] Dr. Garcia. He reports that his mood is doing good today. He says he slept about 9 hours. He woke up with a headache, feels like this is related to his blood pressure. I looked at his vital signs with nursing staff and his blood pressure has improved today. He is agreeable today to start Abilify. We discussed it being in the same family as Risperdal which he has taken in the past. Mental status exam: He is alert and cooperative with the interview. His speech is loud. He does not show any agitation. He describes his mood is doing good. He denies any paranoid thoughts and denies any hallucinations. He does not verbalize any thoughts of harm to self or others. He does not show any agitation. Plan: We'll start Abilify 5 mg daily for mood stabilization and prevention of any psychosis symptoms. Monitor for any side effects. Dr. Garcia to initiate care this patient starting tomorrow.
[2017-08-11] MEDS: ARIPiprazole 5 MG TAB PO SCH (17:41)
[2017-08-11] MEDS ORDERED: guaiFENesin SYRUP 100MG/5ML 200 MG/10 ML CUP PO PRN (19:28)
[2017-08-11] MEDS: LATANOPROST 0.005% OPHTH DROPS 2.5 ML BTL LEFT EYE SCH (20:57)
[2017-08-11] MEDS: ATORVASTATIN 10 MG TAB PO SCH (20:57)
[2017-08-11] MEDS: BENZOCAINE/MENTHOL LOZENG 1 EACH LOZENGE MUCOUS MEM PRN (20:59)
[2017-08-12] MEDS: LEVOTHYROXINE 125 MCG TAB PO SCH (06:18)
[2017-08-12] MEDS: ARIPiprazole 5 MG TAB PO SCH (08:49)
[2017-08-12] MEDS: CHOLECALCIFEROL 1,000 UNIT TAB PO SCH (08:49)
[2017-08-12] MEDS: prednisoLONE ACETATE 1% OPHTH DROPS 1 ML BTL RIGHT EYE SCH ×2 (08:50→20:29)
[2017-08-12] MEDS: guaiFENesin SYRUP 100MG/5ML 200 MG/10 ML CUP PO PRN ×2 (10:34→20:28)
[2017-08-12] MEDS: BENZOCAINE/MENTHOL LOZENG 1 EACH LOZENGE MUCOUS MEM PRN (10:36)
--- NOTE | 2017-08-12 11:46 | P.PN ---
Progress Note - Text Interval history: The patient is found in group he follows me to an interview room. The psychiatric evaluation by Dr. Mcdaniels was reviewed. The patient was admitted on petition due to alleged symptoms of psychosis. Documentation suggests that the patient had been concerned about his food being poisoned and things in the home being contaminated. The patient has denied having any of those symptoms but offers no explanation as to why his and daughter would have those concerns. It's documented that he takes Zoloft and other medications and he states he hasn't been on any psychiatric medicines and 10 years. He states his mood is good. He states that Dr. Mcdaniels initiated a medication for him that he is willing to take but does not offer an explanation as to what the medicines for. He is referring to Zeny. He states he was diagnosed with schizoaffective disorder numerous years ago but the psychiatrist at the [facility] just did it so he would get disability. Mental status exam: The patient is an obese male appearing his stated age. He has hearing impairment and speaks quite loudly. He is cooperative. He reports having no symptoms as we go through a psychiatric review of systems. He quickly dismisses those questions. When confronted with the fact that his report is quite discrepant to that of his and daughters he states "I don't know" rather than offer some explanation as to why there could be a misperception. He states he is not suicidal and has no homicidal ideation. At this point he is a questionable historian. He is oriented to person place and date. He is able to register 3 words and recall 2 of the 3 after delay of 3 minutes he was able to get the third word with a cue. He is able to name the months of the year backwards he is able to name 5 major cities in the [place]. With abstraction questions half are concrete answers half are abstract. He demonstrates no abnormal involuntary movements. He demonstrates no verbal or physical aggressiveness. He maintains a constricted affect. At times he comes across as very direct and blunt with his statements. Plan: Despite the patient's denial of symptoms it is possible he is underreporting or lacking insight into possible symptoms of psychosis. I agree with the Zeny and would titrate the dose to 10 mg daily allowing it to be potentially more effective. We will explore whether or not he has been on Zoloft lately and can restart it if needed. We will continue to monitor him for safety and encourage his full participation in the milieu. Vital signs reviewed.
[2017-08-12] MEDS: LATANOPROST 0.005% OPHTH DROPS 2.5 ML BTL LEFT EYE SCH (20:29)
[2017-08-12] MEDS: ATORVASTATIN 10 MG TAB PO SCH (20:29)
[2017-08-13] MEDS: LEVOTHYROXINE 125 MCG TAB PO SCH (05:51)
[2017-08-13] MEDS: prednisoLONE ACETATE 1% OPHTH DROPS 1 ML BTL RIGHT EYE SCH ×2 (08:34→20:14)
[2017-08-13] MEDS: CHOLECALCIFEROL 1,000 UNIT TAB PO SCH (08:34)
[2017-08-13] MEDS: ARIPiprazole 10 MG TAB PO SCH (08:34)
--- NOTE | 2017-08-13 10:27 | P.PN ---
Progress Note - Text Interval history: The patient is found in the back hallway conversing with peers he follows me to an interview room. He reports his mood is fine. He denies having any symptoms. Staff report the patient has been compliant. He states that he did sleep last night appetite is stable. He reports having a phone conversation with his . He has been complying with the Abilify. Mental status exam: The patient is a morbidly obese male he is dressed in his own clothing he seated calmly. He speaks loudly due to his hearing impairment. Eye contact is good. Speech is spontaneous fluent nonpressured. He reports no suicidal or homicidal ideation intent or plan. He demonstrates no verbal or physical aggressiveness. He demonstrates no abnormal involuntary movements. He remains oriented to person place and date. Affect is appropriately expressive. He denies having any auditory or visual hallucinations. He continues to deny any delusional thought. He continues to state that his family have made incorrect allegations about him having symptoms of psychosis. Plan: The patient's will continue on the Abilify 10 mg daily. He has not been demonstrating any aggressive behavior he appears to be meeting his ADLs here on the mental health unit. He is verbalizing no thoughts of self-harm. Case was discussed with social work and she will facilitate a support meeting involving his . The patient does not wish to have his daughter involved in his care on the mental health unit. We will await the results of the support meeting to see if any circumstances change. We will consider discharging him in the next 1 -2 days if clinically appropriate. He may in fact have some delusional thinking he is not disclosing but if his function overall is adequate and there is no imminent safety risk we will discharge him.
[2017-08-13] MEDS: LORazepam 0.5 MG TAB PO PRN (16:26)
[2017-08-13] MEDS: LATANOPROST 0.005% OPHTH DROPS 2.5 ML BTL LEFT EYE SCH (20:13)
[2017-08-13] MEDS: ATORVASTATIN 10 MG TAB PO SCH (20:14)
[2017-08-14] MEDS: LEVOTHYROXINE 125 MCG TAB PO SCH (06:05)
[2017-08-14 07:13] VITALS: BP 154/73; PULSE 96; RESP 18; TEMP 97.7
[2017-08-14] MEDS: prednisoLONE ACETATE 1% OPHTH DROPS 1 ML BTL RIGHT EYE SCH (08:15)
[2017-08-14] MEDS: CHOLECALCIFEROL 1,000 UNIT TAB PO SCH (08:16)
[2017-08-14] MEDS: ARIPiprazole 10 MG TAB PO SCH (08:16)
[2017-08-14] MEDS: ACETAMINOPHEN TAB 325 MG TAB PO PRN (08:17)
--- NOTE | 2017-08-14 09:15 | P.DS ---
Providers Date of admission: 08/09/17 12:36 Expected date of discharge: 08/14/17 Attending physician: Chuy Garcia Consults: 08/09/17 14:27 Consult Physician Routine Consulting Provider: Lida Patino Consult Reason/Comments: H & P & medical management Do you want consulting provider notified?: Already Contacted Primary care physician: Stated None - Discharge Diagnosis(es) (1) Unspecified psychosis Current Visit: Yes Status: Acute Priority: High (2) Chronic post-traumatic stress disorder (PTSD) Current Visit: Yes Status: Acute Priority: Medium Hospital Course: Brief summary of admission note: This patient is a 71-year-old male who was admitted to the psychiatric unit through the emergency room. The patient was brought in on a pickup order issued by the court. The patient was seen by the psychiatric nurse the case was staffed with the on-call psychiatrist the decision was made the patient did not require admission. The patient was going to be discharged. The patient's daughter became aware came to the hospital and petition the patient. Collateral information was obtained. Although the patient denied having symptoms we then did have concern and felt he required observation. The patient was willing to sign into the hospital at that time. He was initially evaluated by Dr. Mcdaniels. In reviewing Dr. Mcdaniels's psychiatric evaluation the patient denied having any symptoms including thoughts of self-harm or harm to others. For full details please refer to Dr. Mcdaniels a psychiatric evaluation dated 08/10/2017. Summary of hospital course: The patient was initially seen by Dr. Mcdaniels and recommended the patient start Abilify 5 mg daily. The patient was agreeable and has been compliant with the medication. I assumed care of the patient the following Saturday. The Abilify was titrated to 10 mg daily. Throughout his hospitalization the patient has denied having any symptoms. Of course she could have been underreporting symptoms but he has been able to consistently attend to his activities of daily living and he has demonstrated no imminent safety risk. At no time did he report any thoughts of harming himself or others. He was able to attend groups he demonstrated no agitated behavior. Throughout his stay here he consistently denied having any symptoms. He was seen by internal medicine for routine history and physical exam. Social work met with the patient to complete a psychosocial assessment. The patient was willing to have a speak with his but did not want is communicating with his daughter. Social work spoke with the patient's several times. His is being brought in for support meeting to be held this morning. We were informed that the patient was prescribed Zoloft and Prazosin but the patient states he has not been taking those medications as an outpatient for quite some time. Ativan was used as needed for anxiety. It appears he is prescribed Ativan on an outpatient basis. The patient wanted to be transferred to the [facility] in [place] and early into the admission that was explored however there were no available beds and they would not accept him. He plans to follow- up with the [facility] as an outpatient as he feels most comfortable with their services. Mental status exam: The patient is a morbidly obese male appearing his stated age. He seated calmly in the chair he is dressed in his own clothing. Hygiene and grooming are adequate. Eye contact is appropriate. He cooperates during the conversation and participate as expected. He does speak quite loudly due to his hearing deficit he states related to his service. He reports his mood is good he is endorsing no hopelessness thinking he denies having any suicidal or homicidal ideation intent or plan. He reports no feelings of aggressiveness or irritability. He reports experiencing no auditory or visual hallucinations or specific delusions there is no overt evidence he is experiencing psychosis. Insight and judgment appear to be grossly intact. He is fully oriented to person place and date. He demonstrates no verbal or physical aggressiveness. He demonstrates no abnormal involuntary movements other than he may have some tremor of his upper extremities noticed in his hands. Impressions 1. Psychosis unspecified, rule out history of schizoaffective disorder, chronic post traumatic stress disorder related to service, rule out history of alcohol use disorder 2. Glaucoma of right eye, hyperlipidemia, hypothyroidism Plan: The patient will be discharged to home with his following the support meeting this morning. The patient states he prefers to follow with [facility] in [place] social work will arrange follow-up. The patient will continue on Abilify 10 mg daily he may continue on Ativan 0.5 mg up to twice daily if needed for anxiety symptoms. The patient verbalizes no thoughts of self-harm or harm to others he is able to successfully participate in his own activities of daily living he has shown no signs of agitation during the several days of being on the mental health unit. There appears to be no imminent safety risk he is appropriate for transition to outpatient care. He is instructed to abstain from any use of alcohol marijuana or illicit drugs. He is instructed to report to the hospital with any acute safety concerns. Patient Condition at Discharge: Stable Plan - Discharge Summary Discharge Rx Participant: No New Discharge Prescriptions: New ARIPiprazole [Abilify] 10 mg PO DAILY #30 tab LORazepam [Ativan] 0.5 mg PO BID PRN #30 tab PRN Reason: Anxiety Continue Simvastatin [Zocor] 20 mg PO HS Cholecalciferol [Vitamin D3] 1,000 unit PO DAILY prednisoLONE ACETATE 1% OPHTH [Pred Forte 1%] 1 drops RIGHT EYE BID Levothyroxine Sodium [Synthroid] 125 mcg PO DAILY Latanoprost [Xalatan 0.005%] 1 drop LEFT EYE HS Discharge Medication List Simvastatin [Zocor] 20 mg PO HS 06/22/15 [History] Cholecalciferol [Vitamin D3] 1,000 unit PO DAILY 11/12/16 [History] Latanoprost [Xalatan 0.005%] 1 drop LEFT EYE HS 08/09/17 [History] Levothyroxine Sodium [Synthroid] 125 mcg PO DAILY 08/09/17 [History] prednisoLONE ACETATE 1% OPHTH [Pred Forte 1%] 1 drops RIGHT EYE BID 08/09/17 [ History] ARIPiprazole [Abilify] 10 mg PO DAILY #30 tab 08/14/17 [Rx] LORazepam [Ativan] 0.5 mg PO BID PRN #30 tab 08/14/17 [Rx] Follow up Appointment(s)/Referral(s): intake, intake [Other] - 08/16/17 10:00 am (08/16/17 at 10:00am with the nurse or doctor 08/30/17 at 2:00pm with social and political studies professor 10/17/17 at 9:00am with Dr. Watts ) Jason Fraga MD [STAFF PHYSICIAN] - 1-2 days Patient Instructions/Handouts: Post Traumatic Stress Disorder (GEN), Abuse of Alcohol (GEN) Activity/Diet/Wound Care/Special Instructions: Activity and diet as tolerated. Avoid the use of street drugs and alcohol. Take all medications as prescribed. When you are in need of refills on your medications please contact your medical provider and/or outpatient psychiatrist to have this done. Please go to scheduled outpatient appointment for aftercare treatment. If symptoms return or become worse call the crisis line at [phone] and/or go to the nearest emergency room for an evaluation.
== END 2017-08-14 09:25 | disposition home or self-care (01) | DRG 885 ==
LOC: EC 09:23 → 3MHU 12:36
PROVIDERS: ADMIT Psychiatry & Neurology Psychiatry; ATTEND Psychiatry & Neurology Psychiatry
DX: F29 Unspecified psychosis not due to a substance or known physiological condition (principal); E66.01 Morbid (severe) obesity due to excess calories; F43.12 Post-traumatic stress disorder, chronic; E03.9 Hypothyroidism, unspecified; E78.5 Hyperlipidemia, unspecified; F25.9 Schizoaffective disorder, unspecified; H40.9 Unspecified glaucoma; K21.9 Gastro-esophageal reflux disease without esophagitis; R03.0 Elevated blood-pressure reading, without diagnosis of hypertension; F41.9 Anxiety disorder, unspecified; H91.90 Unspecified hearing loss, unspecified ear; Z72.89 Other problems related to lifestyle; Z79.899 Other long term (current) drug therapy; Z87.891 Personal history of nicotine dependence; Z81.8 Family history of other mental and behavioral disorders
CPT/HCPCS: 80053; 80061; 82075; 83036; 84443; 85025; 99285

== ENCOUNTER 2019-03-02 19:51 | Observation (INO) | payer MEDICARE ==
[2019-03-02 20:54] LABS: Appearance,Urine Clear (Clear); Bilirubin,Urine Negative (Negative); Blood,Urine Negative (Negative); Color,Urine Light Yellow; Glucose,Urine (UA) Negative (Negative); Ketones,Urine Negative (Negative); Leukocyte Esterase,Urine Negative (Negative); Nitrite,Urine Negative (Negative); Protein,Urine Negative (Negative); Specific Gravity,Urine 1.011 (1.001-1.035); Urobilinogen,Urine <2.0 mg/dL (<2.0)
--- NOTE | 2019-03-02 21:03 | ED ---
Psych HPI - General Source: patient Mode of arrival: ambulatory <Neena Huston - Last Filed: 03/03/19 03:56> <Lucinda Rose - Last Filed: 03/03/19 06:22> - General Chief Complaint: Psychiatric Symptoms Stated Complaint: Mental Health Time Seen by Provider: 03/02/19 20:23 - History of Present Illness Initial Comments: 73-year-old male patient is brought to the emergency department on a pickup order from the Court for psychiatric evaluation. Patient's filled out a petition stating the patient has been very paranoid over the last couple of weeks. States he has been nailing the doors and windows shut. He has been drinking more than usual. Hes been making threatening statements toward her. Patient has been previously diagnosed with schizophrenia and PTSD. Patient did quit all mental health treatment and medications over the last couple of years stating that he didn't need them any longer. Patient states that he is not suicidal or homicidal. States he doesn't know why he is here. He has been cooperative and states he will receive a psychiatric evaluation. He denies any current physical symptoms or concerns. Denies any current alcohol use.Patient denies any recent rash, fever, chills, shortness breath, chest pain, abdominal pain, nausea, vomiting, diarrhea, constipation, back pain, numbness, tingling, d izziness, weakness, hematuria, dysuria, urinary urgency, urinary frequency, headache, visual changes, or any other complaints. (Neena Huston) - Related Data Home Medications Medication Instructions Recorded Confirmed Simvastatin [Zocor] 20 mg PO HS 06/22/15 08/09/17 Cholecalciferol [Vitamin D3 (25 1,000 unit PO DAILY 11/12/16 08/09/17 Mcg = 1000 Iu)] Latanoprost [Xalatan 0.005%] 1 drop LEFT EYE HS 08/09/17 08/09/17 Levothyroxine Sodium [Synthroid] 125 mcg PO DAILY 08/09/17 08/09/17 prednisoLONE ACETATE 1% OPHTH 1 drops RIGHT EYE BID 08/09/17 08/09/17 [Pred Forte 1%] Previous Rx's Medication Instructions Recorded ARIPiprazole [Abilify] 10 mg PO DAILY #30 tab 08/14/17 LORazepam [Ativan] 0.5 mg PO BID PRN #30 tab 08/14/17 Allergies Allergy/AdvReac Type Severity Reaction Status Date / Time No Known Allergies Allergy Verified 03/02/19 20:45 Review of Systems ROS Other: All systems not noted in ROS Statement are negative. <Neena Huston - Last Filed: 03/03/19 03:56> ROS Other: All systems not noted in ROS Statement are negative. <Lucinda Rose P - Last Filed: 03/03/19 06:22> ROS Statement: Those systems with pertinent positive or pertinent negative responses have been documented in the HPI. Past Medical History Past Medical History: GERD/Reflux, Hyperlipidemia, Thyroid Disorder Additional Past Medical History / Comment(s): RT EYE glaucoma., History of elevated blood pressure, UPPER/LOWER BRIDGES, EXPOSED TO AGENT [facility] IN [facility], History of Any Multi-Drug Resistant Organisms: None Reported Additional Past Surgical History / Comment(s): RIGHT EYE SURGERY FOR GLAUCOMA, NASAL POLYP SURGERY(BENIGN) RT LEG SX(WOUNDED IN [facility]) PT STATED STILL HAS SCHRAPNEL, Past Anesthesia/Blood Transfusion Reactions: No Reported Reaction Past Psychological History: Anxiety Smoking Status: Former smoker Past Alcohol Use History: Occasional Past Drug Use History: None Reported - Past Family History Father Family Medical History: Cancer Additional Family Medical History / Comment(s): THROAT CANCER <Neena Huston - Last Filed: 03/03/19 03:56> General Exam Limitations: no limitations General appearance: alert, in no apparent distress, other (Physical well- developed, well-nourished elderly male patient in no acute distress. Vital signs upon presentation are temperature 98.1F, pulse 91, respirations 18, blood pressure 133/75, pulse ox 100% on room air.) Eye exam: Present: normal appearance, PERRL, EOMI. Absent: scleral icterus, conjunctival injection, periorbital swelling ENT exam: Present: normal exam, normal oropharynx, mucous membranes moist Respiratory exam: Present: normal lung sounds bilaterally. Absent: respiratory distress, wheezes, rales, rhonchi, stridor Cardiovascular Exam: Present: regular rate, normal rhythm, normal heart sounds. Absent: systolic murmur, diastolic murmur, rubs, gallop, clicks GI/Abdominal exam: Present: soft, normal bowel sounds. Absent: distended, tenderness, guarding, rebound, rigid Neurological exam: Present: alert, oriented X3, CN II-XII intact Psychiatric exam: Present: normal affect, normal mood Skin exam: Present: warm, dry, intact, normal color. Absent: rash <Neena Huston - Last Filed: 03/03/19 03:56> Course Vital Signs 03/02/19 03/02/19 03/02/19 20:01 22:04 23:15 Temperature 98.1 F 98.3 F Pulse Rate 91 89 87 Respiratory 18 18 18 Rate Blood Pressure 133/75 114/68 120/72 O2 Sat by Pulse 100 99 99 Oximetry Medical Decision Making - Lab Data Result diagrams: 03/02/19 21:06 03/02/19 21:06 - EKG Data -: EKG Interpreted by Oh <Neena Huston - Last Filed: 03/03/19 03:56> - Lab Data Result diagrams: 03/02/19 21:06 03/02/19 21:06 <Lucinda Rose - Last Filed: 03/03/19 06:22> - Medical Decision Making 73-year-old male patient presents to the emergency department today petitioned by the court for psychiatric evaluation. Patient's wrote a petition stating that he has been increasingly paranoid over the last several weeks. He has not been caring for himself. He has been nailing the dorsum window shut. And thinks a "hate group" is out to get him. Labs were obtained to rule out physiological cause for his symptoms. He did have evidence of acute renal fa ilure. He'll be admitted to the hospital for IV hydration and further evaluation. Dr. Atwood is accepting. (Neena Huston) I personally saw and evaluated the patient as well as reviewed patient chart. Agree with plan for admission for acute kidney injury. (Lucinda Rose) - Lab Data Lab Results 03/02/19 03/02/19 03/02/19 Range/Units 20:32 21:06 21:06 WBC 8.0 (3.8-10.6) k/uL RBC 4.40 (4.30-5.90) m/uL Hgb 14.3 (13.0-17.5) gm/dL Hct 42.2 (39.0-53.0) % MCV 95.9 (80.0-100.0) fL MCH 32.4 (25.0-35.0) pg MCHC 33.8 (31.0-37.0) g/dL RDW 13.8 (11.5-15.5) % Plt Count 153 (150-450) k/uL Neutrophils % 57 % Lymphocytes % 24 % Monocytes % 5 % Eosinophils % 11 % Basophils % 1 % Neutrophils # 4.5 (1.3-7.7) k/uL Lymphocytes # 1.9 (1.0-4.8) k/uL Monocytes # 0.4 (0-1.0) k/uL Eosinophils # 0.9 H (0-0.7) k/uL Basophils # 0.1 (0-0.2) k/uL Sodium 139 (137-145) mmol/L Potassium 4.7 (3.5-5.1) mmol/L Chloride 111 H (98-107) mmol/L Carbon Dioxide 18 L (22-30) mmol/L Anion Gap 10 mmol/L BUN 54 H (9-20) mg/dL Creatinine 1.49 H (0.66-1.25) mg/dL Est GFR (CKD-EPI)AfAm 54 (>60 ml/min/1.73 sqM) Est GFR (CKD-EPI)NonAf 47 (>60 ml/min/1.73 sqM) Glucose 125 H (74-99) mg/dL Calcium 10.4 H (8.4-10.2) mg/dL Total Bilirubin 0.4 (0.2-1.3) mg/dL AST 42 (17-59) U/L ALT 64 (21-72) U/L Alkaline Phosphatase 49 (38-126) U/L Total Protein 6.9 (6.3-8.2) g/dL Albumin 4.3 (3.5-5.0) g/dL Urine Color Light Yellow Urine Appearance Clear (Clear) Urine pH 5.0 (5.0-8.0) Ur Specific [place] 1.011 (1.001-1.035) Urine Protein Negative (Negative) Urine Glucose (UA) Negative (Negative) Urine Ketones Negative (Negative) Urine Blood Negative (Negative) Urine Nitrite Negative (Negative) Urine Bilirubin Negative (Negative) Urine Urobilinogen <2.0 (<2.0) mg/dL Ur Leukocyte Esterase Negative (Negative) Urine Opiates Screen Not Detected (NotDetected) Ur Oxycodone Screen Not Detected (NotDetected) Urine Methadone Screen Not Detected (NotDetected) Ur Propoxyphene Screen Not Detected (NotDetected) Ur Barbiturates Screen Not Detected (NotDetected) U Tricyclic Antidepress Not Detected (NotDetected) Ur Phencyclidine Scrn Not Detected (NotDetected) Ur Amphetamines Screen Not Detected (NotDetected) U Methamphetamines Scrn Not Detected (NotDetected) U Benzodiazepines Scrn Not Detected (NotDetected) Urine Cocaine Screen Not Detected (NotDetected) U Marijuana (THC) Screen Not Detected (NotDetected) Serum Alcohol <10 mg/dL - EKG Data EKG Comments: EKG obtained at 0029 shows sinus rhythm with premature atrial complexes, ventricular rate of 96, NM interval 144, QRS duration 88, QT 356, QTC 449. No evidence of ST elevation or depression. ( (Neena Huston) Disposition Decision to Admit Reason: Admit from EC Decision Date: 03/02/19 Decision Time: 22:28 <Neena Huston - Last Filed: 03/03/19 03:56> <Lucinda Rose - Last Filed: 03/03/19 06:22> Clinical Impression: Acute renal failure, Paranoia Disposition: ADMITTED IP TO THIS [facility] Condition: Serious
[2019-03-02 21:10] LABS: Amphetamine Screen,Urine Not Detected (NotDetected); Barbiturate Screen,Urine Not Detected (NotDetected); Benzodiazepines Screen,Urine Not Detected (NotDetected); Cocaine Screen,Urine Not Detected (NotDetected); Methadone Screen, Urine Not Detected (NotDetected); Opiate Screen,Urine Not Detected (NotDetected); Oxycodone Screen, Urine Not Detected (NotDetected); Phencyclidine Screen,Urine Not Detected (NotDetected); Tricyclic Antidepressant,Urine Not Detected (NotDetected); Urn Cannabinoid Scrn Not Detected (NotDetected)
[2019-03-02 21:26] LABS: Basophils # (A) 0.1 k/uL (0-0.2); Basophils % (A) 1 %; Eosinophils # (A) 0.9 k/uL (0-0.7); Eosinophils % (A) 11 %; HCT 42.2 % (39.0-53.0); HGB 14.3 gm/dL (13.0-17.5); Lymphocytes # (A) 1.9 k/uL (1.0-4.8); Lymphocytes % (A) 24 %; MCH 32.4 pg (25.0-35.0); MCHC 33.8 g/dL (31.0-37.0); MCV 95.9 fL (80.0-100.0); Mean Platelet Volume 7.4; Monocytes # (A) 0.4 k/uL (0-1.0); Monocytes % (A) 5 %; Neutrophils # (A) 4.5 k/uL (1.3-7.7); Neutrophils % (A) 57 %; Platelet Count 153 k/uL (150-450); RDW 13.8 % (11.5-15.5)
[2019-03-02 21:28] LABS: ALT 64 U/L (21-72); AST 42 U/L (17-59); African American GFR (CKD) 54 (>60 ml/min/1.73 sqM); Albumin 4.3 g/dL (3.5-5.0); Alcohol <10 mg/dL; Alkaline Phosphatase 49 U/L (38-126); Anion Gap 10 mmol/L; Blood Urea Nitrogen 54 mg/dL (9-20); Calcium 10.4 mg/dL (8.4-10.2); Carbon Dioxide 18 mmol/L (22-30); Chloride 111 mmol/L (98-107); Glucose 125 mg/dL (74-99); Potassium 4.7 mmol/L (3.5-5.1); Sodium 139 mmol/L (137-145); Total Bilirubin 0.4 mg/dL (0.2-1.3); Total Protein 6.9 g/dL (6.3-8.2)
[2019-03-02] MEDS ORDERED: NALOXONE 0.4 MG/ML 1 ML VIAL IV PRN (22:23)
[2019-03-02] MEDS ORDERED: SODIUM CHLORIDE 0.9% 1,000 ML IV ONE (22:27)
[2019-03-02] MEDS ORDERED: SODIUM CHLORIDE 0.9% 500 ML 500 ML IV ONE (22:27)
[2019-03-02] MEDS: SODIUM CHLORIDE 0.9% 1,000 ML IV SCH (22:45)
[2019-03-03] MEDS ORDERED: ARTIFICIAL TEARS-HYPROMELLOSE DROPS 15 ML BTL BOTH EYES PRN (11:14)
[2019-03-03 11:42] LABS: Albumin 4.2 g/dL (3.5-5.0); Calcium 9.8 mg/dL (8.4-10.2); Potassium 4.8 mmol/L (3.5-5.1); Total Bilirubin 0.8 mg/dL (0.2-1.3); Total Protein 6.5 g/dL (6.3-8.2)
--- NOTE | 2019-03-03 14:37 | P.HPIM ---
History of Present Illness 73-year-old male came in [facility] department for psychiatric evaluation up on the order of Court. was petitioned by because the patient was threatening her apparently patient does have schizoaffective disorder and PTSD was even admitted in the psychiatric floor here in the past. Patient here was found to have elevated serum creatinine of 1.4 with baseline around 0.9 because of which patient was admitted to medicine service was started on IV fluids with improvement in creatinine patient today denied any homicidal or C-cell ideation patient denied any fever chills patient does have thought processes abnormalities. Psychiatric was consulted. Patient is also on KEESHA inhibitor and hydrochlorothiazide combination which may have contributed to his elevated creatinine and acute renal dysfunction patient is not requiring these medications as of now blood pressure will be monitored although does need to stay on the medical floor for this patient can be discharged either to home to a psychiatric floor depending on psychiatric evaluation and recommendation. Review of Systems REVIEW OF SYSTEMS: CONSTITUTIONAL: No fever, no malaise, no fatigue. HEENT: No recent visual problems or hearing problems. Denied any sore throat. CARDIOVASCULAR: No chest pain, orthopnea, PND, no palpitations, no syncope. PULMONARY: No shortness of breath, no cough, no hemoptysis. GASTROINTESTINAL: No diarrhea, no nausea, no vomiting, no abdominal pain. NEUROLOGICAL: No headaches, no weakness, no numbness. HEMATOLOGICAL: Denies any bleeding or petechiae. GENITOURINARY: Denies any burning micturition, frequency, or urgency. MUSCULOSKELETAL/RHEUMATOLOGICAL: Denies any joint pain, swelling, or any muscle pain. ENDOCRINE: Denies any polyuria or polydipsia. The rest of the 14-point review of systems is negative. Past Medical History Past Medical History: GERD/Reflux, Hyperlipidemia, Thyroid Disorder Additional Past Medical History / Comment(s): RT EYE glaucoma., History of elevated blood pressure, UPPER/LOWER BRIDGES, EXPOSED TO AGENT ORANGE IN [place], History of Any Multi-Drug Resistant Organisms: None Reported Additional Past Surgical History / Comment(s): RIGHT EYE SURGERY FOR GLAUCOMA, NASAL POLYP SURGERY(BENIGN) RT LEG SX(WOUNDED IN [place]) PT STATED STILL HAS SCHRAPNEL, Past Anesthesia/Blood Transfusion Reactions: No Reported Reaction Past Psychological History: Anxiety Smoking Status: Former smoker Past Alcohol Use History: Occasional Past Drug Use History: None Reported - Past Family History Father Family Medical History: Cancer Additional Family Medical History / Comment(s): THROAT CANCER Medications and Allergies Home Medications Medication Instructions Recorded Confirmed Type Simvastatin [Zocor] 20 mg PO HS 06/22/15 03/03/19 History Levothyroxine Sodium [Synthroid] 125 mcg PO DAILY 08/09/17 03/03/19 History Artificial Tears-Hypromellose 1 drops BOTH EYES TID PRN 03/03/19 03/03/19 History [Artificial Tear Drops] Cholecalciferol [Vitamin D3] 400 unit PO DAILY 03/03/19 03/03/19 History Latanoprost/Pf [Latanoprost 0.005% 1 drop BOTH EYES HS 03/03/19 03/03/19 History Eye Drop] Lisinopril-Hctz 20-25 mg 1 tab PO DAILY 03/03/19 03/03/19 History [Zestoretic 20-25] Timolol 0.5% Ophth Soln [Timoptic 1 drop RIGHT EYE DAILY 03/03/19 03/03/19 History 0.5% Ophth Soln] Allergies Allergy/AdvReac Type Severity Reaction Status Date / Time No Known Allergies Allergy Verified 03/02/19 20:45 Physical Exam Vitals: Vital Signs Temp Pulse Pulse Resp BP BP Pulse Ox 03/03/19 08:00 16 03/03/19 04:45 97.6 F 84 16 121/80 99 03/03/19 00:15 97.9 F 82 16 114/74 99 03/02/19 23:15 98.3 F 87 18 120/72 99 03/02/19 22:04 89 18 114/68 99 03/02/19 20:01 98.1 F 91 18 133/75 100 Intake and Output 03/02/19 03/03/19 03/03/19 22:59 06:59 14:59 Other: # Voids 3 Weight 113.398 kg PHYSICAL EXAMINATION: GENERAL: The patient is alert and oriented x3, not in any acute distress. Well developed, well nourished. HEENT: Pupils are round and equally reacting to light. EOMI. No scleral icterus. No conjunctival pallor. Normocephalic, atraumatic. No pharyngeal erythema. No thyromegaly. CARDIOVASCULAR: S1 and S2 present. No murmurs, rubs, or gallops. PULMONARY: Chest is clear to auscultation, no wheezing or crackles. ABDOMEN: Soft, nontender, nondistended, normoactive bowel sounds. No palpable organomegaly. MUSCULOSKELETAL: No joint swelling or deformity. EXTREMITIES: No cyanosis, clubbing, or pedal edema. NEUROLOGICAL: Gross neurological examination did not reveal any focal deficits. SKIN: No rashes. Results CBC & Chem 7: 03/02/19 21:06 03/03/19 09:41 Labs: Abnormal Lab Results - Last 24 Hours (Table) 03/02/19 03/02/19 03/03/19 Range/Units 21:06 21:06 09:41 Eosinophils # 0.9 H (0-0.7) k/uL Chloride 111 H 108 H (98-107) mmol/L Carbon Dioxide 18 L (22-30) mmol/L BUN 54 H 34 H (9-20) mg/dL Creatinine 1.49 H (0.66-1.25) mg/dL Glucose 125 H 113 H (74-99) mg/dL Calcium 10.4 H (8.4-10.2) mg/dL Thrombosis Risk Factor Assmnt - Choose All That Apply Any of the Below Risk Factors Present?: Yes Each Factor Represents 1 point: Obesity (BMI >25) Other Risk Factors: Yes Each Risk Factor Represents 2 Points: Age 61-74 years Thrombosis Risk Factor Assessment Total Risk Factor Score: 3 Thrombosis Risk Factor Assessment Level: Moderate Risk Assessment and Plan Plan: -Acute renal failure prerenal azotemia most probably secondary to medications that his lisinopril and hydrochlorothiazide combination which was discontinued patient is medically stable to be discharged home to psychiatric floor. -Possibility of acute psychosis: Management as per psychiatric. -Hyperlipidemia -Hypothyroidism -Gastroesophageal reflux disease -PTSD and schizoaffective disorder.
[2019-03-03] MEDS: SODIUM CHLORIDE 0.9% 1,000 ML IV SCH ×2 (14:57→22:17)
[2019-03-03 15:10] VITALS: TEMP 97.9
--- NOTE | 2019-03-03 18:09 | P.CN ---
Psychiatric Consult - . Consult date: 03/03/19 Consult:: Identification: Patient is a 73-year-old male who was brought to the hospital under a court order after his petitioned for examination Reason for Consult: Paranoia History of Present Illness: Patient's chart was reviewed, patient was seen and interviewed in his room no family members were present. Per the information on the petition as well as an attached sheet the patient had been making statements at home that he thought his food was being poisoned, had been putting screws and bolts on the front and back doors in the house threatening to his stating that he could get rid of her and no one would know where she was. Patient had also been using more alcohol. Patient was also talking about a hate group. I spoke with the patient he states that 2 police came to his house and had a paper to pick him up and he went with them and has no idea why he is here in the hospital. Patient states that he was not threatening his and is not suspicious that anyone was trying to poison him. Patient denies using any alcoh ol stating he only uses it on holidays. Patient denied any of the statements made in the petition and on the attached sheet. Patient states that he was admitted here in 2017 under similar circumstances when the police came to the house and picked him up. He can't tell me why he was picked up at that time and states that he really did not need to be hospitalized were medicated them. He states he followed with the medication after filling the prescription one time and then discontinued the medication which was Abilify 10 mg. Patient states he was also admitted in 1994 to [facility] where he spent several weeks and was discharged on Risperdal however he states that he only took that medication for a number of years to [facility]. He states that he has had no [facility]-up at the [facility] for over 15 years and did not follow-up with the [facility] in [place] after his discharge here in 2017. The patient denies any symptoms of depression, juan r and denies any psychotic symptomatology as well as any symptoms of anxiety. He states he was diagnosed with PTSD in the past but has not had any flashbacks or nightmares recently. Patient states that he has never threatened to harm anyone and has never threatened to kill himself and is never made any suicide attempts. Patient states that he never needed the medication and only took the Abilify here in 2017 so that the doctor would like him. He denies any of the statements that are made on the petition stating that he has not felt suspicious, has not threatened his . Patient doesn't understand why he is in the hospital and doesn't feel that he needs any medication at this time. Past Psychiatric History: Patient has 2 prior psychiatric admissions one in 1994 at [facility] [place] and one here in 2017 and has been treated with Risperdal and Abilify in the past. Patient is currently on no psychiatric medications and has not had any follow-up with psychiatry through the [facility]. Past Medical/Surgical History: Patient states that he has hypertension and hypothyroidism elevated cholesterol and states glaucoma in the right eye and denies any surgical history Family History: Patient denies any psychiatric history or substance abuse or alcohol use disorders in his family and no completed suicides Social History: Patient was born and raised in [place] and both of his parents are . He had 3 sisters one of whom is . Patient states he completed high school and was drafted by the [employer]. He served from [id number] and did serve time in [place]. 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 He feels he retired at about the age of 65. Patient has been for greater than 50 years and has 4 children. Currently lives with his and they adopted his grandson who is 8 years of age. He denies any abuse history Substance Use History: Patient denies any alcohol use currently and states he only drinks alcohol on rare occasion on the holidays and never was a heavy drinker in the past and denies any current or prior drug use history. Legal History: Patient denies Mental status: Appearance/Attitude: Patient is lying in a hospital bed in no acute distress makes eye contact and is cooperative Behavior: Patient does not exhibit any psychomotor retardation or agitation Speech/Language: Patient's speech is spontaneous he speaks in a loud voice of normal rhythm and is coherent Thought Process: Patient is goal-directed there is no evidence of loose association or flight of ideas Thought Content: Patient denies any auditory or visual hallucinations and no de lusions or paranoid ideation were elicited. Patient denies that he was threatening to anyone, denies that he felt people were trying to poison him denies that he was putting bolts on the doors to prevent people from entering or from he and his from leaving, denies the existence of any hate group that he was discussing. Patient denied any symptoms and states that he is generally quite happy. He denies any alcohol or drug use currently. Patient states he is sleeping and eating well. Suicidal/Homicidal Ideation: Patient denied any current suicidal or homicidal ideation Sensorium/Cognition: Patient is alert and oriented to person, place, and time and his recent and remote memory are grossly intact Mood/Affect: Patient's mood was pleasant and his affect was appropriate to his mood Insight/Judgment: Patient's insight and judgment are impaired Assessment: Per the petition and the attached sheet the patient has been bolting his front and back door, threatening his telling her that he could get rid of her and no one would find her, has been making statements that his food has been poisoned, has been using increasing amounts of alcohol and the patient denies any of this. Patient denies any symptoms of any type and states that he is never made any threatening statements and does not feel paranoid. Patient states that he does not require treatment and does not require any medication. Per an attached note from the daughter she states that there are weapons in the house which the patient denied to me as well. Diagnosis: Psychotic disorder rule out schizoaffective disorder; rule out alcohol use disorder Plan: Patient is denying all symptoms at this time and states that he never had any symptomatology never required treatment in the past and states that he only did it to obtain a disability [facility] the [facility]. Patient denies any made any threats to his but per the petition was threatening, paranoid and suspicious at home. Patient also apparently owns weapons although he again denies this. Patient is requiring an admission to an inpatient psychiatric unit to assess and appropriately treat the patient has he has been admitted twice in the past to inpatient psychiatric units. A first certification was completed and placed on the chart. Patient has a one-to-one sitter and I would continue this. No psychotropic medications will be started at this time. Patient requires inpatient admission due to his threatening statements to his and paranoid behavior. 03/03/19 17:57
[2019-03-03] MEDS ORDERED: LATANOPROST 0.005% OPHTH DROPS 2.5 ML BTL BOTH EYES SCH (21:00)
[2019-03-03] MEDS ORDERED: ATORVASTATIN 10 MG TAB PO SCH (21:00)
[2019-03-03 22:11] VITALS: RESP 16
[2019-03-04 05:59] VITALS: BP 136/80; PULSE 86
[2019-03-04] MEDS ORDERED: LEVOTHYROXINE 125 MCG TAB PO SCH (06:30)
[2019-03-04] MEDS ORDERED: TIMOLOL 0.5% OPHTH DROPS 5 ML BTL RIGHT EYE SCH (09:00)
[2019-03-04] MEDS: SODIUM CHLORIDE 0.9% 1,000 ML IV SCH (10:53)
--- NOTE | 2019-03-04 15:22 | P.DS ---
Providers Date of admission: 03/02/19 21:59 Attending physician: Ghanshyam Atwood MD Consults: 03/02/19 22:26 Consult Physician Routine Consulting Provider: Kaleigh Banks Consult Reason/Comments: Psych eval; Paranoia Do you want consulting provider notified?: Yes Primary care physician: Stated None Hospital Course: Please refer to my yesterday's dictation for further details patient underwent stay in the hospital as patient was not evaluated by EPS nurse. Patient is being transferred to psychiatric floor today. PHYSICAL EXAMINATION: GENERAL: The patient is alert and oriented x3, not in any acute distress. Well developed, well nourished. HEENT: Pupils are round and equally reacting to light. EOMI. No scleral icterus. No conjunctival pallor. Normocephalic, atraumatic. No pharyngeal erythema. No thyromegaly. CARDIOVASCULAR: S1 and S2 present. No murmurs, rubs, or gallops. PULMONARY: Chest is clear to auscultation, no wheezing or crackles. ABDOMEN: Soft, nontender, nondistended, normoactive bowel sounds. No palpable organomegaly. MUSCULOSKELETAL: No joint swelling or deformity. EXTREMITIES: No cyanosis, clubbing, or pedal edema. NEUROLOGICAL: Gross neurological examination did not reveal any focal deficits. SKIN: No rashes. Patient Condition at Discharge: Good Plan - Discharge Summary New Discharge Prescriptions: Continue Simvastatin [Zocor] 20 mg PO HS Levothyroxine Sodium [Synthroid] 125 mcg PO DAILY Timolol 0.5% Ophth Soln [Timoptic 0.5% Ophth Soln] 1 drop RIGHT EYE DAILY Cholecalciferol [Vitamin D3] 400 unit PO DAILY Artificial Tears-Hypromellose [Artificial Tear Drops] 1 drops BOTH EYES TID PRN PRN Reason: DRY EYES Latanoprost/Pf [Latanoprost 0.005% Eye Drop] 1 drop BOTH EYES HS Discontinued Lisinopril-Hctz 20-25 mg [Zestoretic 20-25] 1 tab PO DAILY Discharge Medication List Simvastatin [Zocor] 20 mg PO HS 06/22/15 [History] Levothyroxine Sodium [Synthroid] 125 mcg PO DAILY 08/09/17 [History] Artificial Tears-Hypromellose [Artificial Tear Drops] 1 drops BOTH EYES TID PRN 03/03/19 [History] Cholecalciferol [Vitamin D3] 400 unit PO DAILY 03/03/19 [History] Latanoprost/Pf [Latanoprost 0.005% Eye Drop] 1 drop BOTH EYES HS 03/03/19 [History] Timolol 0.5% Ophth Soln [Timoptic 0.5% Ophth Soln] 1 drop RIGHT EYE DAILY 03/03/19 [History] Follow up Appointment(s)/Referral(s): None,Stated [Primary Care Provider] - 3 Days Patient Instructions/Handouts: Post Traumatic Stress Disorder (GEN) Activity/Diet/Wound Care/Special Instructions: Regular diet. Activity as tolerated. Discharge Disposition: TRANSFER TO PSYCH HOSP/UNIT
== END 2019-03-04 13:53 ==
LOC: EC 19:51 → 4MS4W 21:59
PROVIDERS: ADMIT Internal Medicine; ATTEND Internal Medicine
DX: N17.9 Acute kidney failure, unspecified (principal); F25.9 Schizoaffective disorder, unspecified; F43.10 Post-traumatic stress disorder, unspecified; E66.9 Obesity, unspecified; E78.5 Hyperlipidemia, unspecified; F29 Unspecified psychosis not due to a substance or known physiological condition; I10 Essential (primary) hypertension; H40.9 Unspecified glaucoma; Z68.39 Body mass index [BMI] 39.0-39.9, adult; F41.9 Anxiety disorder, unspecified; K21.9 Gastro-esophageal reflux disease without esophagitis; E03.9 Hypothyroidism, unspecified; Z87.891 Personal history of nicotine dependence; Z79.890 Hormone replacement therapy; Z79.899 Other long term (current) drug therapy; Z65.5 Exposure to disaster, war and other hostilities; Z77.098 Contact with and (suspected) exposure to other hazardous, chiefly nonmedicinal, chemicals; Z80.8 Family history of malignant neoplasm of other organs or systems
CPT/HCPCS: 96361 ×2; 82075; 96360; 99285; 36415; 93005; 80053 ×2; 85025; 81003; 80306; G0378 ×3; G0480; 80320

== ENCOUNTER 2019-03-04 10:39 | Inpatient (IN) | payer OTHER, MEDICARE ==
[2019-03-04] MEDS ORDERED: MAG HYDROX/AL HYDROX/SIMETH 30 ML CUP PO PRN (14:26)
[2019-03-04] MEDS ORDERED: LORazepam 1 MG TAB PO PRN (14:26)
[2019-03-04] MEDS ORDERED: ACETAMINOPHEN TAB 325 MG TAB PO PRN (14:26)
[2019-03-04] MEDS ORDERED: MAGNESIUM HYDROXIDE 2,400 MG/10 ML CUP PO PRN (14:26)
[2019-03-04] MEDS ORDERED: ARTIFICIAL TEARS-HYPROMELLOSE DROPS 15 ML BTL BOTH EYES PRN (14:29)
[2019-03-04 14:46] VITALS: BMI 39.2
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
[2019-03-04] MEDS: LATANOPROST 0.005% OPHTH DROPS 2.5 ML BTL BOTH EYES SCH (20:05)
[2019-03-04] MEDS: ATORVASTATIN 10 MG TAB PO SCH (20:05)
[2019-03-05] MEDS: LEVOTHYROXINE 125 MCG TAB PO SCH (06:37)
[2019-03-05] MEDS: CHOLECALCIFEROL 400 UNIT TAB PO SCH (08:29)
[2019-03-05] MEDS: TIMOLOL 0.5% OPHTH DROPS 5 ML BTL RIGHT EYE SCH (08:30)
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
[2019-03-05 12:17] LABS: Hemoglobin A1C 6.3 % (4.0-6.0)
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
[2019-03-05] MEDS: ARIPiprazole 10 MG TAB PO SCH (22:16)
[2019-03-05] MEDS: ATORVASTATIN 10 MG TAB PO SCH (22:16)
[2019-03-05] MEDS: LATANOPROST 0.005% OPHTH DROPS 2.5 ML BTL BOTH EYES SCH (22:17)
[2019-03-06] MEDS: LEVOTHYROXINE 125 MCG TAB PO SCH (06:11)
[2019-03-06] MEDS: TIMOLOL 0.5% OPHTH DROPS 5 ML BTL RIGHT EYE SCH (09:12)
[2019-03-06] MEDS: CHOLECALCIFEROL 400 UNIT TAB PO SCH (09:12)
--- NOTE | 2019-03-06 14:05 | P.PN ---
Progress Note - Text Progress Note Date: 03/06/19 Interval History: Patient is a 73-year-old male who reports that he did get served a PPI ordered yesterday and states that his filed because she is being influenced by her "buddhist friends". Patient states that he doesn't care and to the PPI order and threw it in the wastebasket. He reports that he has predicted that this would occur, stating that maybe he should just divorce her. Patient states that she is the one who is greedy and he is not going to be paying for anything after he gets out of the hospital. Patient continued to deny that he ever threatened his , he then went on to spontaneously discuss the fact that his got the PPI ordered because he likes to wear women's dresses occasionally and has been told by other psychiatrists that that is fine as he states it helps him relax and assist with treating his PTSD symptoms. Patient reports he is eating and sleeping well. Patient had no complaints of side effects from the Abilify. Mental Status: Appearance/Attitude: Patient is neatly and appropriately dressed, makes eye contact and was cooperative Behavior: Patient does not display any psychomotor agitation or retardation. Speech/Language: Patient's speech is slightly pressured, he speaks in a loud voice and a normal rhythm and is coherent Thought Process: Patient is goal-directed, at times tangential Thought Content: Patient denies any auditory or visual hallucination and today discusses his continued thoughts that his is trying to take his belongings, is greedy and has been making laughing but false accusations against him and states that she is being influenced by her buddhist friends, he can't describe them and states that they come over to the house periodically. Patient states he took the PPI order states that once he is released to move out of the house and quit paying for the bills for the home and let her take care of herself. Patient also spontaneously discussed the fact that he thinks his filed for a PPI order due to the fact that he likes to wear women's dresses occasionally. He reports that he sleeping and eating in the hospital Suicidal/Homicidal Ideation: Patient denied any current suicidal or homicidal ideation Sensorium/Cognition: Patient is alert and oriented to person, place, and time and his recent and remote memory are grossly intact Mood/Affect: Patient's mood is more irritable and his affect is appropriate to his mood Insight/Judgment: Patient's insight and judgment are limited Assessment: Patient today verbalize spontaneously that his filed a PPI order because he likes to wear women's dresses, he then stated that she is being influenced by a buddhist group that she is now hanging with but cannot tell me who this is and continues to verbalize thoughts that his is trying to take his belongings and money and is greedy. Patient states he tore up the PPO order, we'll not continue to support his financially and she can go ahead and him. Patient is more irritable today his speech is slightly pressured and he has been sleeping and eating. Patient has been attending groups and activities. Plan: Patient will continue on Abilify 10 mg to target his mood and paranoid thoughts, we'll continue to adjust as needed, patient's presentation is his most likely a bipolar disorder. Patient continues to require hospitalization to further target his mood and paranoid ideation.
[2019-03-06] MEDS: ARIPiprazole 10 MG TAB PO SCH (20:41)
[2019-03-06] MEDS: ATORVASTATIN 10 MG TAB PO SCH (20:41)
[2019-03-06] MEDS: LATANOPROST 0.005% OPHTH DROPS 2.5 ML BTL BOTH EYES SCH (20:42)
[2019-03-07] MEDS ORDERED: ASPIRIN 81 MG PO STA (03:30)
--- NOTE | 2019-03-07 04:33 | XR ---
EXAM: XR Chest, 2 Views CLINICAL HISTORY: ITS.REASON XR Reason: Chest pain and cough TECHNIQUE: Frontal and lateral views of the chest. COMPARISON: 10/16/16 IMPRESSION: Unchanged heart size. Small linear opacity in the left lower lobe, possibly infection, scarring, or subsegmental atelectasis. No pleural effusion or pulmonary edema.
[2019-03-07 04:55] LABS: Basophils # (A) 0.1 k/uL (0-0.2); Basophils % (A) 1 %; Eosinophils # (A) 0.7 k/uL (0-0.7); Eosinophils % (A) 7 %; HCT 41.8 % (39.0-53.0); HGB 14.2 gm/dL (13.0-17.5); Lymphocytes # (A) 2.5 k/uL (1.0-4.8); Lymphocytes % (A) 25 %; MCH 32.4 pg (25.0-35.0); MCV 95.4 fL (80.0-100.0); Mean Platelet Volume 7.3; Monocytes # (A) 0.6 k/uL (0-1.0); Monocytes % (A) 6 %; Neutrophils # (A) 5.9 k/uL (1.3-7.7); Neutrophils % (A) 60 %; Platelet Count 168 k/uL (150-450); RBC 4.38 m/uL (4.30-5.90); RDW 14.7 % (11.5-15.5); WBC 9.8 k/uL (3.8-10.6)
[2019-03-07 05:03] LABS: Calcium 9.7 mg/dL (8.4-10.2)
[2019-03-07] MEDS: LEVOTHYROXINE 125 MCG TAB PO SCH (06:07)
[2019-03-07] MEDS: CHOLECALCIFEROL 400 UNIT TAB PO SCH (08:32)
[2019-03-07] MEDS: TIMOLOL 0.5% OPHTH DROPS 5 ML BTL RIGHT EYE SCH (08:35)
[2019-03-07] MEDS: ARIPiprazole 10 MG TAB PO SCH (20:41)
[2019-03-07] MEDS: LATANOPROST 0.005% OPHTH DROPS 2.5 ML BTL BOTH EYES SCH (20:41)
[2019-03-07] MEDS: ATORVASTATIN 10 MG TAB PO SCH (20:41)
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
[2019-03-08] MEDS: LEVOTHYROXINE 125 MCG TAB PO SCH (06:15)
[2019-03-08] MEDS: CHOLECALCIFEROL 400 UNIT TAB PO SCH (09:22)
[2019-03-08] MEDS: TIMOLOL 0.5% OPHTH DROPS 5 ML BTL RIGHT EYE SCH (10:55)
[2019-03-08] MEDS: ATORVASTATIN 10 MG TAB PO SCH ×2 (21:05→21:07)
[2019-03-08] MEDS: ARIPiprazole 10 MG TAB PO SCH ×2 (21:05→21:07)
[2019-03-08] MEDS: LATANOPROST 0.005% OPHTH DROPS 2.5 ML BTL BOTH EYES SCH (21:36)
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
[2019-03-09] MEDS: LEVOTHYROXINE 125 MCG TAB PO SCH (06:06)
[2019-03-09] MEDS: CHOLECALCIFEROL 400 UNIT TAB PO SCH ×2 (08:55→08:56)
[2019-03-09] MEDS: TIMOLOL 0.5% OPHTH DROPS 5 ML BTL RIGHT EYE SCH (09:25)
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
[2019-03-09] MEDS: LATANOPROST 0.005% OPHTH DROPS 2.5 ML BTL BOTH EYES SCH (21:11)
[2019-03-09] MEDS: ATORVASTATIN 10 MG TAB PO SCH (21:11)
[2019-03-10] MEDS: LEVOTHYROXINE 125 MCG TAB PO SCH (06:27)
[2019-03-10] MEDS: TIMOLOL 0.5% OPHTH DROPS 5 ML BTL RIGHT EYE SCH (06:28)
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
[2019-03-10] MEDS: LATANOPROST 0.005% OPHTH DROPS 2.5 ML BTL BOTH EYES SCH (21:15)
[2019-03-10] MEDS: ATORVASTATIN 10 MG TAB PO SCH (21:16)
[2019-03-10] MEDS ORDERED: METHYL SALICYLATE/MENTHOL CREAM 5 OZ TOPICAL PRN (21:40)
[2019-03-11] MEDS: LEVOTHYROXINE 125 MCG TAB PO SCH (05:55)
[2019-03-11] MEDS: CHOLECALCIFEROL 400 UNIT TAB PO SCH (07:45)
[2019-03-11] MEDS: TIMOLOL 0.5% OPHTH DROPS 5 ML BTL RIGHT EYE SCH (07:46)
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
[2019-03-11] MEDS: LATANOPROST 0.005% OPHTH DROPS 2.5 ML BTL BOTH EYES SCH (21:34)
[2019-03-11] MEDS: ATORVASTATIN 10 MG TAB PO SCH (21:34)
[2019-03-12] MEDS: LEVOTHYROXINE 125 MCG TAB PO SCH (06:16)
[2019-03-12] MEDS: TIMOLOL 0.5% OPHTH DROPS 5 ML BTL RIGHT EYE SCH (08:16)
[2019-03-12] MEDS: CHOLECALCIFEROL 400 UNIT TAB PO SCH (08:17)
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
[2019-03-12] MEDS: LATANOPROST 0.005% OPHTH DROPS 2.5 ML BTL BOTH EYES SCH (21:25)
[2019-03-12] MEDS: ATORVASTATIN 10 MG TAB PO SCH (21:25)
[2019-03-13] MEDS: LEVOTHYROXINE 125 MCG TAB PO SCH (05:50)
[2019-03-13] MEDS: CHOLECALCIFEROL 400 UNIT TAB PO SCH (08:37)
[2019-03-13] MEDS: TIMOLOL 0.5% OPHTH DROPS 5 ML BTL RIGHT EYE SCH (08:37)
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
[2019-03-13] MEDS: ATORVASTATIN 10 MG TAB PO SCH (21:45)
[2019-03-13] MEDS: LATANOPROST 0.005% OPHTH DROPS 2.5 ML BTL BOTH EYES SCH (21:45)
[2019-03-14] MEDS: LEVOTHYROXINE 125 MCG TAB PO SCH (06:57)
[2019-03-14] MEDS: CHOLECALCIFEROL 400 UNIT TAB PO SCH (08:57)
[2019-03-14] MEDS: TIMOLOL 0.5% OPHTH DROPS 5 ML BTL RIGHT EYE SCH (08:57)
--- NOTE | 2019-03-14 11:54 | P.PN ---
Progress Note - Text Interval history: The patient's found in group he follows me to an interview room. He indicates his mood is fine. He is looking forward to being discharged on Saturday. He states that he has no questions or concerns regarding his medication. He was offered the Maintena injection but he defers that option. He has been sleeping at night appetite stable. He reports that he was recently served with divorce papers which he states he anticipated. He reports that he needs to get an securities attorney provided by the [place] so he can contest alimony and child support for their adopted grandson. Mental status exam: The patient is an overweight male appearing his stated age. He is dressed in his own clothing. He is pleasant cooperative easily directed. He speaks loudly in the session. Mood is described is fine, affect is congruent to reported mood. He reports no suicidal ideation intent or plan. He reports no homicidal ideation intent or plan. Specifically he denies having any thoughts of wanting to hurt or kill his . He is reporting no auditory or visual hallucinations or any specific delusions. He is demonstrating no overt evidence of psychosis currently. He does not appear to be hypomanic or manic at this time. Insight and judgment seem to be improving. He demonstrates no verbal or physical aggressiveness no involuntary repetitive movements. Plan: The patient will continue on his current medication. We will monitor him for safety. He is encouraged to continue participating in the milieu. Vital signs reviewed. It appears that he is stabilizing and may be appropriate for discharge as soon as Saturday.
[2019-03-14] MEDS: ATORVASTATIN 10 MG TAB PO SCH (20:18)
[2019-03-14] MEDS: LATANOPROST 0.005% OPHTH DROPS 2.5 ML BTL BOTH EYES SCH (20:18)
[2019-03-15] MEDS: LEVOTHYROXINE 125 MCG TAB PO SCH (06:18)
[2019-03-15 06:41] VITALS: RESP 16
[2019-03-15] MEDS: TIMOLOL 0.5% OPHTH DROPS 5 ML BTL RIGHT EYE SCH (08:49)
[2019-03-15] MEDS: CHOLECALCIFEROL 400 UNIT TAB PO SCH (08:49)
--- NOTE | 2019-03-15 12:24 | P.PN ---
Progress Note - Text Interval history: The patient's found in the [facility] he follows me to an interview room. He indicates his mood is fine. He states he feels the effects of the Abilify and it "mellows my mood". He speaks at length about his filing for divorce and he states it's due to his "gender bending fetish". He reports appetite stable sleep is stable. He is looking forward to being discharged tomorrow. He states he will get his camper and can't for the next 10 days. Mental status exam: The patient is an overweight male appearing his stated age. He is dressed in his own clothing hygiene grooming adequate. Speech is fluent and spontaneous nonpressured. He speaks with a loud tone. It's no suicidal or homicidal ideation intent or plan he reports no auditory or visual hallucinations or specific delusions. He demonstrates no verbal or physical aggressiveness he demonstrates no involuntary repetitive movements. I nsight and judgment improving. He is oriented to person place and date. Plan: The patient will continue on his current psychotropic medication. We will monitor him for safety and encourage participation in the milieu. Vital signs reviewed. It appears that he is clinically stabilizing.
[2019-03-15] MEDS: ATORVASTATIN 10 MG TAB PO SCH (20:52)
[2019-03-15] MEDS: LATANOPROST 0.005% OPHTH DROPS 2.5 ML BTL BOTH EYES SCH (20:52)
[2019-03-16] MEDS: LEVOTHYROXINE 125 MCG TAB PO SCH (06:07)
[2019-03-16 06:42] VITALS: BP 136/78; PULSE 72; TEMP 97.9
[2019-03-16] MEDS: CHOLECALCIFEROL 400 UNIT TAB PO SCH (09:53)
[2019-03-16] MEDS: TIMOLOL 0.5% OPHTH DROPS 5 ML BTL RIGHT EYE SCH (09:54)
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
== END 2019-03-16 14:46 | disposition home or self-care (01) | DRG 885 ==
LOC: 3MHU 13:59
PROVIDERS: ADMIT Psychiatry & Neurology Psychiatry; ATTEND Psychiatry & Neurology Psychiatry
DX: F25.0 Schizoaffective disorder, bipolar type (principal); R45.850 Homicidal ideations; F60.0 Paranoid personality disorder; I10 Essential (primary) hypertension; E03.9 Hypothyroidism, unspecified; H40.9 Unspecified glaucoma; F43.10 Post-traumatic stress disorder, unspecified; K21.9 Gastro-esophageal reflux disease without esophagitis; E78.5 Hyperlipidemia, unspecified; R45.6 Violent behavior; Z79.890 Hormone replacement therapy; Z79.899 Other long term (current) drug therapy; Z87.891 Personal history of nicotine dependence; Z65.5 Exposure to disaster, war and other hostilities; Z59.9 Problem related to housing and economic circumstances, unspecified; Z98.890 Other specified postprocedural states; Z77.098 Contact with and (suspected) exposure to other hazardous, chiefly nonmedicinal, chemicals; Z80.8 Family history of malignant neoplasm of other organs or systems
CPT/HCPCS: 71046; 80048; 83036; 84484; 85025; 93005

== ENCOUNTER 2022-08-03 16:51 | Emergency (ER) | payer MEDICARE, OTHER ==
--- NOTE | 2022-08-03 18:08 | ED ---
General Adult HPI <Atif Espinoza - Last Filed: 08/06/22 13:35> - General Source: patient Mode of arrival: ambulatory Limitations: no limitations <Scooby Slater - Last Filed: 08/12/22 07:04> - General Chief complaint: Psychiatric Symptoms Stated complaint: petition Time Seen by Provider: 08/03/22 17:59 - History of Present Illness Initial comments: Dictation was produced using [employer] dictation software. please excuse any grammatical, word or spelling errors. Chief Complaint: 76-year-old male brought in by law enforcement for psych evaluation History of Present Illness: 76-year-old male is brought in by law enforcement for psychiatric evaluation patient had a pickup order. Family was concerned about his well-being. History obtained from reports that patient has been showing signs of psychosis. Patient is made suicidal comments. Patient states he does not know why he is here he was at [employer] restaurant having dinner when all of a sudden he left and law enforcement picked the mom brought him here. Patient has any medical complaints at this time. The ROS documented in this emergency department record has been reviewed and confirmed by me. Those systems with pertinent positive or negative responses have been documented in the HPI. All other systems are other negative and/or noncontributory. PHYSICAL EXAM: General Impression: Alert and oriented x3, not in acute distress HEENT: Normocephalic atraumatic, extra-ocular movements intact, pupils equal and reactive to light bilaterally, mucous membranes moist. Cardiovascular: Heart regular rate and rhythm Chest: Able to complete full sentences, no retractions, no tachypnea Abdomen: abdomen soft, non-tender, non-distended, no organomegaly Musculoskeletal: Pulses present and equal in all extremities, no peripheral edema Motor: no focal deficits noted Neurological: CN II-XII grossly intact, no focal motor or sensory deficits noted Skin: Intact with no visualized rashes Psych: Normal affect and mood ED course: 76-year-old male presents emergency department for psychiatric evaluation. Vital signs upon arrival are within acceptable limits. (Scooby Slater) - Related Data Home Medications Medication Instructions Recorded Confirmed Dorzolamide-Timol 2.23%/0.68% 1 drop BOTH EYES BID 08/03/22 08/03/22 [Cosopt] Levothyroxine Sodium 137 mcg PO DAILY 08/03/22 08/03/22 Simvastatin [Zocor] 40 mg PO HS 08/03/22 08/03/22 hydroCHLOROthiazide [Hydrodiuril] 25 mg PO DAILY 08/03/22 08/03/22 metFORMIN HCL [Glucophage] 500 mg PO BID 08/03/22 08/03/22 Allergies Allergy/AdvReac Type Severity Reaction Status Date / Time KEESHA Inhibitors Allergy unknown, Verified 08/03/22 21:15 per [facility] records Review of Systems ROS Other: All systems not noted in ROS Statement are negative. <Atif Espinoza - Last Filed: 08/06/22 13:35> ROS Other: All systems not noted in ROS Statement are negative. <Scooby Slater - Last Filed: 08/12/22 07:04> ROS Statement: Those systems with pertinent positive or pertinent negative responses have been documented in the HPI. Past Medical History Past Medical History: GERD/Reflux, Hyperlipidemia, Hypertension, Thyroid Disorder Additional Past Medical History / Comment(s): RT EYE glaucoma., History of elevated blood pressure, UPPER/LOWER BRIDGES, EXPOSED TO AGENT ORANGE IN [place], History of Any Multi-Drug Resistant Organisms: None Reported Additional Past Surgical History / Comment(s): RIGHT EYE SURGERY FOR GLAUCOMA, NASAL POLYP SURGERY(BENIGN) RT LEG SX(WOUNDED IN [place]) PT STATED STILL HAS SCHRAPNEL, Past Anesthesia/Blood Transfusion Reactions: No Reported Reaction Past Psychological History: Anxiety Smoking Status: Never smoker Past Alcohol Use History: Occasional Past Drug Use History: None Reported - Past Family History Father Family Medical History: Cancer Additional Family Medical History / Comment(s): THROAT CANCER <Scooby Slater - Last Filed: 08/12/22 07:04> General Exam Limitations: no limitations <Scooby Slater - Last Filed: 08/12/22 07:04> Course Vital Signs 08/03/22 08/04/22 08/04/22 17:57 08:37 11:43 Temperature 98.4 F 98 F Pulse Rate 99 86 68 Respiratory 20 16 18 Rate Blood Pressure 137/79 190/95 150/89 O2 Sat by Pulse 99 99 99 Oximetry 08/04/22 08/04/22 08/04/22 15:00 17:00 21:49 Temperature 98 F 98.3 F Pulse Rate 80 80 80 Respiratory 16 16 16 Rate Blood Pressure 185/90 190/90 140/80 O2 Sat by Pulse 99 100 100 Oximetry 08/06/22 08/07/22 08/07/22 06:00 06:32 13:58 Temperature Pulse Rate 74 81 95 Respiratory 14 16 12 Rate Blood Pressure 127/79 107/62 130/79 O2 Sat by Pulse 98 97 100 Oximetry 08/07/22 17:57 Temperature Pulse Rate 85 Respiratory 16 Rate Blood Pressure 132/79 O2 Sat by Pulse 99 Oximetry Medical Decision Making - Lab Data Result diagrams: 08/05/22 23:26 08/05/22 23:26 <Atif Espinoza - Last Filed: 08/06/22 13:35> - Lab Data Result diagrams: 08/05/22 23:26 08/05/22 23:26 <Scooby Slater - Last Filed: 08/12/22 07:04> - Medical Decision Making I did see this Patient and completed the clinical certification (Atif Espinoza) Chart review at a later date. Patient is transferred to outside psychiatric facility. (Scooby Slater) - Lab Data Lab Results 08/05/22 08/05/22 08/05/22 Range/Units 23:20 23:26 23:26 WBC 9.9 (3.8-10.6) k/uL RBC 4.94 (4.30-5.90) m/uL Hgb 15.6 (13.0-17.5) gm/dL Hct 47.5 (39.0-53.0) % MCV 96.1 (80.0-100.0) fL MCH 31.5 (25.0-35.0) pg MCHC 32.7 (31.0-37.0) g/dL RDW 13.3 (11.5-15.5) % Plt Count 162 (150-450) k/uL MPV 7.7 Neutrophils % 64 % Lymphocytes % 26 % Monocytes % 3 % Eosinophils % 4 % Basophils % 1 % Neutrophils # 6.3 (1.3-7.7) k/uL Lymphocytes # 2.6 (1.0-4.8) k/uL Monocytes # 0.3 (0-1.0) k/uL Eosinophils # 0.4 (0-0.7) k/uL Basophils # 0.1 (0-0.2) k/uL Sodium 138 (137-145) mmol/L Potassium 4.2 (3.5-5.1) mmol/L Chloride 103 (98-107) mmol/L Carbon Dioxide 29 (22-30) mmol/L Anion Gap 6 mmol/L BUN 16 (9-20) mg/dL Creatinine 0.95 (0.66-1.25) mg/dL Est GFR (CKD-EPI)AfAm >90 (>60 ml/min/1.73 sqM) Est GFR (CKD-EPI)NonAf 79 (>60 ml/min/1.73 sqM) Glucose 143 H (74-99) mg/dL Calcium 9.6 (8.4-10.2) mg/dL Total Bilirubin 0.6 (0.2-1.3) mg/dL AST 44 (17-59) U/L ALT 34 (4-49) U/L Alkaline Phosphatase 70 (38-126) U/L Total Protein 6.7 (6.3-8.2) g/dL Albumin 4.3 (3.5-5.0) g/dL Urine Color Urine Appearance (Clear) Urine pH (5.0-8.0) Ur Specific [place] (1.001-1.035) Urine Protein (Negative) Urine Glucose (UA) (Negative) Urine Ketones (Negative) Urine Blood (Negative) Urine Nitrite (Negative) Urine Bilirubin (Negative) Urine Urobilinogen (<2.0) mg/dL Ur Leukocyte Esterase (Negative) Urine Opiates Screen (NotDetected) Ur Oxycodone Screen (NotDetected) Urine Methadone Screen (NotDetected) Ur Propoxyphene Screen (NotDetected) Ur Barbiturates Screen (NotDetected) U Tricyclic Antidepress (NotDetected) Ur Phencyclidine Scrn (NotDetected) Ur Amphetamines Screen (NotDetected) U Methamphetamines Scrn (NotDetected) U Benzodiazepines Scrn (NotDetected) Urine Cocaine Screen (NotDetected) U Marijuana (THC) Screen (NotDetected) Coronavirus (PCR) Not Detected (Not Detectd) 08/06/22 08/06/22 Range/Units 03:55 03:58 WBC (3.8-10.6) k/uL RBC (4.30-5.90) m/uL Hgb (13.0-17.5) gm/dL Hct (39.0-53.0) % MCV (80.0-100.0) fL MCH (25.0-35.0) pg MCHC (31.0-37.0) g/dL RDW (11.5-15.5) % Plt Count (150-450) k/uL MPV Neutrophils % % Lymphocytes % % Monocytes % % Eosinophils % % Basophils % % Neutrophils # (1.3-7.7) k/uL Lymphocytes # (1.0-4.8) k/uL Monocytes # (0-1.0) k/uL Eosinophils # (0-0.7) k/uL Basophils # (0-0.2) k/uL Sodium (137-145) mmol/L Potassium (3.5-5.1) mmol/L Chloride (98-107) mmol/L Carbon Dioxide (22-30) mmol/L Anion Gap mmol/L BUN (9-20) mg/dL Creatinine (0.66-1.25) mg/dL Est GFR (CKD-EPI)AfAm (>60 ml/min/1.73 sqM) Est GFR (CKD-EPI)NonAf (>60 ml/min/1.73 sqM) Glucose (74-99) mg/dL Calcium (8.4-10.2) mg/dL Total Bilirubin (0.2-1.3) mg/dL AST (17-59) U/L ALT (4-49) U/L Alkaline Phosphatase (38-126) U/L Total Protein (6.3-8.2) g/dL Albumin (3.5-5.0) g/dL Urine Color Light Yellow Urine Appearance Clear (Clear) Urine pH 6.0 (5.0-8.0) Ur Specific [place] 1.014 (1.001-1.035) Urine Protein Negative (Negative) Urine Glucose (UA) Negative (Negative) Urine Ketones Negative (Negative) Urine Blood Negative (Negative) Urine Nitrite Negative (Negative) Urine Bilirubin Negative (Negative) Urine Urobilinogen <2.0 (<2.0) mg/dL Ur Leukocyte Esterase Negative (Negative) Urine Opiates Screen Not Detected (NotDetected) Ur Oxycodone Screen Not Detected (NotDetected) Urine Methadone Screen Not Detected (NotDetected) Ur Propoxyphene Screen Not Detected (NotDetected) Ur Barbiturates Screen Not Detected (NotDetected) U Tricyclic Antidepress Not Detected (NotDetected) Ur Phencyclidine Scrn Not Detected (NotDetected) Ur Amphetamines Screen Not Detected (NotDetected) U Methamphetamines Scrn Not Detected (NotDetected) U Benzodiazepines Scrn Not Detected (NotDetected) Urine Cocaine Screen Not Detected (NotDetected) U Marijuana (THC) Screen Not Detected (NotDetected) Coronavirus (PCR) (Not Detectd) Disposition <Atif Espinoza - Last Filed: 08/06/22 13:35> <Scooby Slater - Last Filed: 08/12/22 07:04> Clinical Impression: Encounter for psychiatric assessment Disposition: TRANSFER TO PSYCH HOSP/UNIT Condition: Fair Referrals: None,Stated [Primary Care Provider] - 1-2 days
[2022-08-04] MEDS ORDERED: ACETAMINOPHEN TAB 325 MG TAB PO STA (21:39)
[2022-08-04 21:50] VITALS: TEMP 98.3
[2022-08-05 23:36] LABS: Basophils # (A) 0.1 k/uL (0-0.2); Basophils % (A) 1 %; Eosinophils # (A) 0.4 k/uL (0-0.7); Eosinophils % (A) 4 %; HCT 47.5 % (39.0-53.0); HGB 15.6 gm/dL (13.0-17.5); Lymphocytes # (A) 2.6 k/uL (1.0-4.8); Lymphocytes % (A) 26 %; MCH 31.5 pg (25.0-35.0); MCHC 32.7 g/dL (31.0-37.0); MCV 96.1 fL (80.0-100.0); Mean Platelet Volume 7.7; Monocytes # (A) 0.3 k/uL (0-1.0); Monocytes % (A) 3 %; Neutrophils # (A) 6.3 k/uL (1.3-7.7); Neutrophils % (A) 64 %; Platelet Count 162 k/uL (150-450); RBC 4.94 m/uL (4.30-5.90); RDW 13.3 % (11.5-15.5); WBC 9.9 k/uL (3.8-10.6)
[2022-08-05 23:45] LABS: ALT 34 U/L (4-49); AST 44 U/L (17-59); African American GFR (CKD) >90 (>60 ml/min/1.73 sqM); Albumin 4.3 g/dL (3.5-5.0); Alkaline Phosphatase 70 U/L (38-126); Anion Gap 6 mmol/L; Blood Urea Nitrogen 16 mg/dL (9-20); Calcium 9.6 mg/dL (8.4-10.2); Carbon Dioxide 29 mmol/L (22-30); Chloride 103 mmol/L (98-107); Glucose 143 mg/dL (74-99); Non-African American GFR(CKD) 79 (>60 ml/min/1.73 sqM); Potassium 4.2 mmol/L (3.5-5.1); Sodium 138 mmol/L (137-145); Total Bilirubin 0.6 mg/dL (0.2-1.3); Total Protein 6.7 g/dL (6.3-8.2)
[2022-08-06 04:11] LABS: Appearance,Urine Clear (Clear); Bilirubin,Urine Negative (Negative); Blood,Urine Negative (Negative); Color,Urine Light Yellow; Glucose,Urine (UA) Negative (Negative); Ketones,Urine Negative (Negative); Leukocyte Esterase,Urine Negative (Negative); Nitrite,Urine Negative (Negative); Protein,Urine Negative (Negative); Specific Gravity,Urine 1.014 (1.001-1.035); Urobilinogen,Urine <2.0 mg/dL (<2.0)
[2022-08-06 04:46] LABS: Amphetamine Screen,Urine Not Detected (NotDetected); Barbiturate Screen,Urine Not Detected (NotDetected); Benzodiazepines Screen,Urine Not Detected (NotDetected); Cocaine Screen,Urine Not Detected (NotDetected); Methadone Screen, Urine Not Detected (NotDetected); Opiate Screen,Urine Not Detected (NotDetected); Oxycodone Screen, Urine Not Detected (NotDetected); Phencyclidine Screen,Urine Not Detected (NotDetected); Tricyclic Antidepressant,Urine Not Detected (NotDetected); Urn Cannabinoid Scrn Not Detected (NotDetected)
[2022-08-07 18:00] VITALS: BP 132/79; PULSE 85; RESP 16
== END 2022-08-07 18:00 ==
LOC: EC 16:51
DX: Z00.8 Encounter for other general examination (principal); K21.9 Gastro-esophageal reflux disease without esophagitis; E78.5 Hyperlipidemia, unspecified; I10 Essential (primary) hypertension; E07.9 Disorder of thyroid, unspecified; F41.9 Anxiety disorder, unspecified; Z20.822 Contact with and (suspected) exposure to COVID-19
CPT/HCPCS: 82075; 99285

== ENCOUNTER → 2024-09-08 | Outpatient (CLI) | payer OTHER ==
--- NOTE | 2024-09-08 22:44 | NM ---
EXAMINATION TYPE: NM DatScan Brain SPECT DATE OF EXAM: 09/08/2024 COMPARISON: CT brain 2017 CLINICAL INDICATION: Male, 78 years old with history of G25.2 OTHER SPECIFIED FORMS OF TREMOR; TECHNIQUE: 10 drops of Lugol's solution was administered 1 hour prior to injection as a thyroid bloc herb agent. After the administration of 4.29 mCi I-123 Ioflupane DaTscan. Images obtained 3 hours p ost injection. SPECT images of the brain were acquired with axial and coronal reconstructions. FINDINGS: The DaTSCAN demonstrates normal uptake of tracer throughout the striata. Consequently there is no evidence of loss of the pre-synaptic dopaminergic terminals on this investig ation. IMPRESSION: This normal appearance is against a diagnosis of idiopathic Parkinson?s disease(PD) or a Parkinsonia n syndrome (PS) and is seen in healthy individuals and also patients with essential tremor (ET), ronald g induced parkinsonism, and vascular pseudo-parkinsonism. [facility], , 09/08/2024 10:42 PM
== END | disposition home or self-care (01) ==
LOC: RADNMMAIN 10:53
PROVIDERS: ATTEND Psychiatry & Neurology Neurology
DX: G25.2 Other specified forms of tremor (principal); G21.19 Other drug induced secondary parkinsonism; G25.0 Essential tremor; G20.A1 Parkinson's disease without dyskinesia, without mention of fluctuations
CPT/HCPCS: 78803; A9584

== ENCOUNTER 2024-09-29 19:01 | Emergency (ER) | payer OTHER ==
--- NOTE | 2024-09-29 19:33 | ED ---
Male Urogenital HPI - General Chief complaint: Urogenital Stated complaint: URO genital Time Seen by Provider: 09/29/24 19:05 Source: patient, RN notes reviewed Mode of arrival: ambulatory Limitations: no limitations - History of Present Illness Initial comments: Patient is a 78 year old male presenting with painful urination since noon today 09/29/24. He states that his pain is only during urination, and rates it a 4/10. He notes increased frequency, voiding every 15 minutes and states he feels like he is not emptying his bladder fully. He denies any radiating pain, testicular pain, hematuria, nausea, vomiting, diarrhea, abdominal pain, history of stones/UTI, chest pain or shortness of breath. - Related Data Home Medications Medication Instructions Recorded Confirmed Dorzolamide-Timol 2.23%/0.68% 1 drop BOTH EYES BID 08/03/22 08/03/22 [Cosopt] Levothyroxine Sodium 137 mcg PO DAILY 08/03/22 08/03/22 Simvastatin [Zocor] 40 mg PO HS 08/03/22 08/03/22 hydroCHLOROthiazide [Hydrodiuril] 25 mg PO DAILY 08/03/22 08/03/22 metFORMIN HCL [Glucophage] 500 mg PO BID 08/03/22 08/03/22 Previous Rx's Medication Instructions Recorded Ketorolac [Toradol] 10 mg PO Q8HR #15 tab 09/29/24 Tamsulosin [Flomax] 0.4 mg PO DAILY #7 cap 09/29/24 Allergies Allergy/AdvReac Type Severity Reaction Status Date / Time KEESHA Inhibitors Allergy unknown, Verified 09/29/24 19:09 per [facility] records Review of Systems ROS Statement: Those systems with pertinent positive or pertinent negative responses have been documented in the HPI. ROS Other: All systems not noted in ROS Statement are negative. Past Medical History Past Medical History: GERD/Reflux, Hyperlipidemia, Hypertension, Thyroid Disorder Additional Past Medical History / Comment(s): RT EYE glaucoma., History of elevated blood pressure, UPPER/LOWER BRIDGES, EXPOSED TO AGENT ORANGE IN [place], History of Any Multi-Drug Resistant Organisms: None Reported Additional Past Surgical History / Comment(s): RIGHT EYE SURGERY FOR GLAUCOMA, NASAL POLYP SURGERY(BENIGN) RT LEG SX(WOUNDED IN [place]) PT STATED STILL HAS SCHRAPNEL, Past Anesthesia/Blood Transfusion Reactions: No Reported Reaction Past Psychological History: Anxiety Smoking Status: Never smoker Past Alcohol Use History: Occasional Past Drug Use History: None Reported - Past Family History Father Family Medical History: Cancer Additional Family Medical History / Comment(s): THROAT CANCER General Exam Limitations: no limitations General appearance: alert, in no apparent distress Respiratory exam: Present: normal lung sounds bilaterally. Absent: respiratory distress, wheezes, rales, rhonchi, stridor Cardiovascular Exam: Present: regular rate, normal rhythm, normal heart sounds. Absent: systolic murmur, diastolic murmur, rubs, gallop, clicks GI/Abdominal exam: Present: soft, normal bowel sounds. Absent: distended, tenderness, guarding, rebound, rigid Back exam: Absent: CVA tenderness (R), CVA tenderness (L) Neurological exam: Present: alert, oriented X3, CN II-XII intact Psychiatric exam: Present: normal affect, normal mood Skin exam: Present: warm, dry, intact, normal color. Absent: rash Course Vital Signs 09/29/24 09/29/24 19:05 22:06 Temperature 98.4 F 97.8 F Pulse Rate 77 80 Respiratory 20 16 Rate Blood Pressure 117/71 136/78 O2 Sat by Pulse 97 99 Oximetry Medical Decision Making - Medical Decision Making Was pt. sent in by a medical professional or institution ([facility], [employer], urgent care, hospital, or residential...) When possible be specific @ -No Did you speak to anyone other than the patient for history (EMS, parent, family, police, friend...)? What history was obtained from this source @ -No Did you review nursing and triage notes (agree or disagree)? Why? @ -I reviewed and agree with nursing and triage notes Were old charts reviewed (outside hosp., previous admission, EMS record, old EKG, old radiological studies, urgent care reports/EKG's, residential records)? Report findings @ -No old charts were reviewed Differential Diagnosis (chest pain, altered mental status, abdominal pain women, abdominal pain men, vaginal bleeding, weakness, fever, dyspnea, syncope, headache, dizziness, GI bleed, back pain, seizure, CVA, palpatations, mental health, musculoskeletal)? @ -Differential Abdominal Pain Men: Appendicitis, cholecystitis, diverticulosis, ischemic bowel, pancreatitis, hepatitis, UTI, gastroenteritis, AAA, incarcerated hernia, bowel obstruction, constipation, inflammatory bowel, hepatitis, peptic ulcer disease, splenic infarction, perforated viscus, testicular torsion, this is not meant to be an all-inclusive list EKG interpreted by me (3pts min.). @None X-rays interpreted by me (1pt min.). @ -None done CT interpreted by me (1pt min.). @ -CT abdomen pelvis showing a left UVJ stone 4 mm U/S interpreted by me (1pt. min.). @ -None done What testing was considered but not performed or refused? (CT, X-rays, U/S, labs)? Why? @ -None What meds were considered but not given or refused? Why? @ -None Did you discuss the management of the patient with other professionals (professionals i.e. , PA, [employer], lab, RT, psych nurse, social worker psychiatric, aws solution architect, teacher, customer service security officer, outpatient case manager)? Give summary @ -No Was smoking cessation discussed for >3mins.? @ -No Was critical care preformed (if so, how long)? @ -No Were there social determinants of health that impacted care today? How? (Homeles sness, low income, unemployed, alcoholism, drug addiction, transportation, low edu. Level, literacy, decrease access to med. care, skilled nursing, rehab)? @ -No Was there de-escalation of care discussed even if they declined (Discuss DNR or withdrawal of care, Hospice)? DNR status @ -No What co-morbidities impacted this encounter? (DM, HTN, Smoking, COPD, CAD, Cancer, CVA, ARF, Chemo, Hep., AIDS, mental health diagnosis, sleep apnea, morbid obesity)? @ -None Was patient admitted / discharged? Hospital course, mention meds given and route, prescriptions, significant lab abnormalities, going to OR and other pertinent info. @ -[Discharge patient presented for urinary frequency dysuria patient found to have hematuria CT was obtained showing kidney stone. Patient has no urinary retention. Undiagnosed new problem with uncertain prognosis? @ -No Drug Therapy requiring intensive monitoring for toxicity (Heparin, Nitro, Insulin, Cardizem)? @ -No Were any procedures done? @ -No Diagnosis/symptom? @ -Kidney stone left Acute, or Chronic, or Acute on Chronic? @ -Acute Uncomplicated (without systemic symptoms) or Complicated (systemic symptoms)? @ -On complicated Side effects of treatment? @ -No Exacerbation, Progression, or Severe Exacerbation? @ -No Poses a threat to life or bodily function? How? (Chest pain, [place], [place], pneumonia, PE, COPD, DKA, ARF, appy, cholecystitis, CVA, Diverticulitis, Homicidal, Suicidal, threat to staff... and all critical care pts) @ -No - Lab Data Result diagrams: 09/29/24 20:14 09/29/24 20:14 Lab Results 09/29/24 09/29/24 09/29/24 Range/Units 19:27 20:14 20:14 WBC 9.8 (3.8-10.6) k/uL RBC 4.30 (4.30-5.90) m/uL Hgb 13.7 (13.0-17.5) gm/dL Hct 41.9 (39.0-53.0) % MCV 97.6 (80.0-100.0) fL MCH 31.8 (25.0-35.0) pg MCHC 32.6 (31.0-37.0) g/dL RDW 13.1 (11.5-15.5) % Plt Count 125 L (150-450) k/uL MPV 7.4 Neutrophils % 72 % Lymphocytes % 16 % Monocytes % 6 % Eosinophils % 5 % Basophils % 1 % Neutrophils # 7.0 (1.3-7.7) k/uL Lymphocytes # 1.6 (1.0-4.8) k/uL Monocytes # 0.6 (0-1.0) k/uL Eosinophils # 0.5 (0-0.7) k/uL Basophils # 0.1 (0-0.2) k/uL Sodium 139 (137-145) mmol/L Potassium 4.1 (3.5-5.1) mmol/L Chloride 107 (98-107) mmol/L Carbon Dioxide 24 (22-30) mmol/L Anion Gap 8 mmol/L BUN 14 (9-20) mg/dL Creatinine 0.93 (0.66-1.25) mg/dL Est GFR (CKD-EPI)AfAm >90 (>60 ml/min/1.73 sqM) Est GFR (CKD-EPI)NonAf 80 (>60 ml/min/1.73 sqM) Glucose 97 (74-99) mg/dL Calcium 9.7 (8.4-10.2) mg/dL Total Bilirubin 0.7 (0.2-1.3) mg/dL AST 14 L (17-59) U/L ALT 12 (4-49) U/L Alkaline Phosphatase 63 (38-126) U/L Total Protein 6.4 (6.3-8.2) g/dL Albumin 4.2 (3.5-5.0) g/dL Urine Color Colorless Urine Appearance Clear (Clear) Urine pH 5.5 (5.0-8.0) Ur Specific [place] 1.001 (1.001-1.035) Urine Protein Negative (Negative) Urine Glucose (UA) Negative (Negative) Urine Ketones Negative (Negative) Urine Blood Moderate H (Negative) Urine Nitrite Negative (Negative) Urine Bilirubin Negative (Negative) Urine Urobilinogen <2.0 (<2.0) mg/dL Ur Leukocyte Esterase Negative (Negative) Urine WBC <1 (0-5) /hpf Disposition Clinical Impression: Ureteral calculus Disposition: HOME SELF-CARE Condition: Stable Instructions (If sedation given, give patient instructions): Kidney Stones (ED) Additional Instructions: Please return to the Emergency Department if symptoms worsen or any other concerns. Prescriptions: Tamsulosin [Flomax] 0.4 mg PO DAILY #7 cap Ketorolac [Toradol] 10 mg PO Q8HR #15 tab Is patient prescribed a controlled substance at d/c from ED?: No Referrals: Bell Kapadia FNPBC [REFERRING] - 1-2 days Time of Disposition: 21:37
[2024-09-29 19:51] LABS: Appearance,Urine Clear (Clear); Bilirubin,Urine Negative (Negative); Blood,Urine Moderate (Negative); Color,Urine Colorless; Glucose,Urine (UA) Negative (Negative); Ketones,Urine Negative (Negative); Leukocyte Esterase,Urine Negative (Negative); Nitrite,Urine Negative (Negative); PH, Urine 5.5 (5.0-8.0); Protein,Urine Negative (Negative); Specific Gravity,Urine 1.001 (1.001-1.035); Urobilinogen,Urine <2.0 mg/dL (<2.0); WBC,Urine <1 /hpf (0-5)
[2024-09-29 20:22] LABS: Basophils # (A) 0.1 k/uL (0-0.2); Basophils % (A) 1 %; Eosinophils # (A) 0.5 k/uL (0-0.7); Eosinophils % (A) 5 %; HCT 41.9 % (39.0-53.0); HGB 13.7 gm/dL (13.0-17.5); Lymphocytes # (A) 1.6 k/uL (1.0-4.8); Lymphocytes % (A) 16 %; MCH 31.8 pg (25.0-35.0); MCHC 32.6 g/dL (31.0-37.0); MCV 97.6 fL (80.0-100.0); Mean Platelet Volume 7.4; Monocytes # (A) 0.6 k/uL (0-1.0); Monocytes % (A) 6 %; Neutrophils % (A) 72 %; Platelet Count 125 k/uL (150-450); RDW 13.1 % (11.5-15.5); WBC 9.8 k/uL (3.8-10.6)
[2024-09-29] MEDS: SODIUM CHLORIDE 0.9% 500 ML 500 ML IV ONE (20:22)
[2024-09-29 20:35] LABS: ALT 12 U/L (4-49); AST 14 U/L (17-59); African American GFR (CKD) >90 (>60 ml/min/1.73 sqM); Albumin 4.2 g/dL (3.5-5.0); Alkaline Phosphatase 63 U/L (38-126); Anion Gap 8 mmol/L; Blood Urea Nitrogen 14 mg/dL (9-20); Calcium 9.7 mg/dL (8.4-10.2); Carbon Dioxide 24 mmol/L (22-30); Chloride 107 mmol/L (98-107); Glucose 97 mg/dL (74-99); Non-African American GFR(CKD) 80 (>60 ml/min/1.73 sqM); Potassium 4.1 mmol/L (3.5-5.1); Sodium 139 mmol/L (137-145); Total Bilirubin 0.7 mg/dL (0.2-1.3); Total Protein 6.4 g/dL (6.3-8.2)
[2024-09-29] MEDS: PHENAZOPYRIDINE 200 MG TAB PO STA (21:00)
--- NOTE | 2024-09-29 21:03 | CT ---
EXAMINATION TYPE: CT abdomen pelvis wo con DATE OF EXAM: 09/29/2024 8:38 PM COMPARISON: None. CLINICAL INDICATION: Male, 78 years old with history of hematuria, Hematuria. TECHNIQUE: Axial images were obtained from above the diaphragm to the pubic rami in the axial plane a t 5 mm thick sections. Reconstructed images are reviewed on the computer in the coronal plane. CONTRAST: mL of . Study performed without Oral Contrast DLP: 977.8 mGycm, Automated exposure control for dose reduction was used. FINDINGS: Limited CT sections are obtained the lung bases. The lung bases are clear. CT ABDOMEN: Liver: Normal Spleen: Scattered calcifications are within the spleen. Pancreas: Normal Adrenal glands: The adrenal glands are normal. Gallbladder: Normal Kidneys: No masses are evident. There is a mild left hydronephrosis. Mild perinephric stranding is pr esent on the left. Mild left hydroureter extends to the urinary bladder. There is an obstructing 0.4 cm calcification at the ureterovesical junction. No cysts are present. Aorta: Scattered calcifications within the aorta. Inferior vena cava: Normal. CT PELVIS: Periumbilical hernia is present with mesenteric fat. No loops of bowel are involved. Loops of bowel within the abdomen and pelvis are normal. There are loops of bowel which are incom pletely distended or lack oral contrast limiting their evaluation. Appendix: Normal as visualized. Urinary bladder: Nondistended which may account for some diffuse wall thickening. Genitourinary structures: Prostate appears unremarkable Osseous structures: No suspicious lytic or sclerotic lesions. IMPRESSION: 1. Obstructing 0.4 cm left ureterovesical junction stone with mild hydronephrosis and hydroureter. [facility], Workstation: [facility], 09/29/2024 9:01 PM
[2024-09-29] MEDS: TAMSULOSIN 0.4 MG CAP.ER.24H PO STA (21:56)
[2024-09-29] MEDS: ONDANSETRON 4 MG ODT STARTER PACK 2 TAB BTL PO STA (21:56)
[2024-09-29] MEDS: ACET/COD 300 MG/30 MG STARTER PACK 6 TAB BTL PO STA (21:57)
[2024-09-29 22:08] VITALS: BP 136/78; PULSE 80; RESP 16; TEMP 97.8
== END 2024-09-29 22:07 | disposition home or self-care (01) ==
LOC: EC 19:01
DX: N13.2 Hydronephrosis with renal and ureteral calculous obstruction (principal); Z88.8 Allergy status to other drugs, medicaments and biological substances
CPT/HCPCS: 51798; 36415; 80053; 85025; 81001; 74176; 99284; S0119